=== PATIENT | male | born 1970 | race Caucasian/White ===

== ENCOUNTER 2024-01-23 06:27 | Observation (INO) | payer BC, SELFPAY ==
--- NOTE | ~2024-01-23 | CT_ITS ---
EXAMINATION: CT ABDOMEN AND PELVIS WITH CONTRAST CLINICAL INFORMATION: Left rectal swelling. COMPARISON: 04/16/2017 TECHNIQUE: Multidetector volumetric images were obtained from the superior aspect of the liver through the pubic symphysis following administration 85 mL of Omnipaque 350 intravenous contrast. Sagittal and coronal reformatted images were obtained on the technologist's workstation. Oral contrast: No This CT examination was performed using dose optimization techniques as appropriate, variously including the following: *Automated exposure control *Adjustment of mA and/or kV according to patient size (this includes techniques or standardized protocols for targeted exams where dose is matched to indication/reason for exam; i.e. extremities or head) *Use of iterative reconstruction technique DLP: 627 mGy-cm FINDINGS: LUNG BASES: Small pericardial effusion. Small hiatal hernia. LIVER, GALLBLADDER, AND BILIARY TREE: The liver is enlarged and decreased in attenuation. No focal hepatic lesion or biliary ductal dilatation is present. The gallbladder is unremarkable with no evidence of radiopaque gallstones, gallbladder wall thickening, or obvious pericholecystic inflammatory changes. PANCREAS: Unremarkable. SPLEEN: Unremarkable. ADRENAL GLANDS: Unremarkable. KIDNEYS AND URETERS: The kidneys are normal in size, shape, and attenuation. No hydronephrosis or perinephric stranding. BLADDER: Unremarkable. GASTROINTESTINAL TRACT: No small bowel obstruction. Appendix is within normal limits. ABDOMINAL WALL: No significant hernia is appreciated. LYMPH NODES: No bulky lymphadenopathy. VASCULAR: Normal caliber abdominal aorta. Retroaortic left renal vein. PELVIC VISCERA: Enlarged prostate gland. There is wall thickening of the pubococcygeus muscles there is a linear tract extending from the anus bifurcating into bilateral abscesses measuring 2.0 x 1.4 x 2.0 cm on the right and 3.9 x 3.1 x 4.5 cm on the left. OSSEOUS STRUCTURES: No destructive bone lesions. There is a subcutaneous nodule along the right buttock measuring 1.5 x 1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 MRI pelvis with fistula protocol may be performed for further characterization. Subcutaneous nodule of the right buttock measuring 1.5 x 1.0 x 1.0 cm. Hepatomegaly and hepatic steatosis. Small pericardial effusion.
[2024-01-23 06:38] VITALS: BP 154/96; PULSE 105; RESP 18; TEMP 36.6; O2SAT 96; BMI 28.2
--- NOTE | 2024-01-23 07:09 | ED.GENADULT ---
HPI - General Adult General Chief complaint: General Medical Stated complaint: ?Rectal abscess Time Seen by Provider: 01/23/24 07:08 Source: patient and old records reviewed Mode of arrival: ambulatory Limitations: no limitations History of Present Illness HPI narrative: 53 yo male with no sig PMH states remote hx of perirectal abscess s/p drainage in past by Dr. Aracelis De León. He notes he gets symptoms that often resolve and do not drain. He notes on Saturday he started to have pain in the rectal area on the left side. He notes it has worsened and now he has a hard time sitting. His bowel movements have changed. No fevers, n/v/d. He does not have diabetes. MD complaint: rectal pain Onset (ago): day(s) (3) Location: buttocks Radiation: non-radiation Severity: moderate Quality: aching and constant Pain Consistency: constant Relieving factors: rest Exacerbating factors: movement and other (sitting) Associated symptoms: denies other symptoms Treatments prior to arrival: none Related Data Allergies Allergy/AdvReac Type Severity Reaction Status Date / Time No Known Allergies Allergy Verified 01/23/24 06:38 [No Known Allergies*] Review of Systems Review of Systems: Constitutional : No Fever, No Chills ENT/Mouth : No sore throat, No Rhinorrhea Eyes: No Eye Pain, No Swelling, No Redness Cardiovascular : No Chest Pain, No SOB Respiratory : No Cough, No Sputum Gastrointestinal : No Nausea, No Vomiting, No Diarrhea, No abdominal Pain Genitourinary : No Dysuria, No Hematuria Musculoskeletal : No joint pain, No Myalgias, No Joint Swelling Skin : pos Skin Lesions, positive skin rash Neuro : No Weakness, No Numbness, No Headache Psych : No Anxiety, No Depression All other systems reviewed and are negative [facility] Past Medical History Attestation statement: The following information was validated with the patient. Source: old records reviewed Medical History (Updated 01/23/24 @ 11:08 by Valerie Matias DO) Perirectal abscess Surgical History (Updated 01/23/24 @ 14:06 by Ashly Farr PA-C) History of incision and drainage Social History Social History (Updated 01/23/24 @ 08:08 by Valerie Matias DO) Patient Tobacco Use Status: Never used Tobacco Smoked in Last 30 Days: No Use of substances other than those prescribed or required for medical reasons: No Advance Directives: No Nutrition Risks: No Nutritional Risk Physical Exam ED Vital Signs: Vital Signs - 24 hr 01/23/24 06:38 01/23/24 10:00 Temperature 97.9 F 98.9 F Pulse Rate 105 H 94 Respiratory Rate 18 16 Blood Pressure 154/96 H 111/70 Pulse Oximetry 96 99 Oxygen Delivery Method Room Air Room Air BMI result Body Mass Index 28.2 Appearance: Alert. Oriented X3. No acute distress. Eyes: Pupils equal, round and reactive to light. ENT: Pharynx normal. Neck: Normal inspection. Neck supple. CVS: Normal heart rate and rhythm. Pulses normal. Respiratory: No respiratory distress. Breath sounds normal. Abdomen: Soft and nontender. Rectal: fluctuant area 3+ cm on left perirectal area but his mucosa almost appears like fistulas vs hidradenitis with open areas and pock rubio there is some purulence noted in different area. there is erythema and ttp Skin: Skin warm and dry. Normal skin color. Normal skin turgor. Extremities: No lower extremity edema. No calf ttp Neuro: Oriented X 3. No motor deficit. No sensory deficit. Medications Administered Generic Name Dose Route Start Last Admin Trade Name Freq PRN Reason Stop Dose Admin Lactated Ringer's 1,000 mls @ 100 mls/hr 01/23/24 12:00 01/23/24 12:24 Lr IVCONT 100 mls/hr .Q10H BIGG Administration Discontinued Medications Generic Name Dose Route Start Last Admin Trade Name Freq PRN Reason Stop Dose Admin Sodium Chloride 1,000 mls @ 999 mls/hr 01/23/24 07:30 01/23/24 10:03 Ns IV 01/23/24 08:30 Infused .Q1H1M BIGG Infusion Piperacillin Sod/Tazobactam 50 mls @ 100 mls/hr 01/23/24 07:21 01/23/24 10:03 Sod 3.375 gm/ Sodium Chloride IV 01/23/24 07:50 Infused ONCE ONE Infusion Iohexol 100 ml 01/23/24 09:54 01/23/24 09:55 Iohexol 350 Mg/Ml 100 Ml Infus..Btl IV 01/23/24 09:55 85 ml ONCE ONE Administration Morphine Sulfate 4 mg 01/23/24 07:21 01/23/24 08:41 Morphine Sulfate 4 Mg/Ml Cartridge IVPUSH 01/23/24 07:22 4 mg ONCE ONE Administration Protocol Morphine Sulfate 4 mg 01/23/24 11:47 01/23/24 12:22 Morphine Sulfate 4 Mg/Ml Cartridge IVPUSH 01/23/24 11:48 4 mg ONCE ONE Administration Protocol Ondansetron HCl 4 mg 01/23/24 07:21 01/23/24 08:41 Ondansetron Hcl 4 Mg/2 Ml Vial IVPUSH 01/23/24 07:22 4 mg ONCE ONE Administration Medical Decision Making Medical Decision Making MDM Narrative: 53 yo male with PMH of perirectal abscess s/p drainage by Panitch in the past comes in with rectal pain and findings of abscess but also abnormal appearing mucosa of the rectum with areas of ?hidradenitis appearing vs fistula will obtain basic labs, CT scan to evaluate depth and degree of abscess, IV zosyn, IV morphine for pain. Differential Diagnosis Differential Diagnoses: The differential diagnosis associated with the presentation includes abscess, cellulitis, HS Admission/Observation Consideration of admission/observation: Escalation of care including admission/observation considered admit to surgery Consult Healthcare Provider Management of the patient was discussed with: [employer] (Dr. Nestor armando) Lab Data [facility] Lab Attestation statement: I reviewed the patient's lab results. 01/23/24 07:43 01/23/24 07:43 Labs: Lab Results 01/23/24 Range/Units 07:43 WBC 14.1 H (4.8-10.8) X10*3/uL RBC 4.91 (4.60-5.80) X10*6/uL Hgb 15.3 (14.0-18.0) g/dl Hct 44.5 (42.0-52.0) % MCV 90.6 (80.0-98.0) fL MCH 31.2 (27.0-33.0) pg MCHC 34.4 (31.0-36.0) g/dl RDW 13.6 (11.0-16.0) % Plt Count 227 (160-400) X10*3/uL MPV 9.8 (9.4-12.4) fL Immature Gran % (Auto) 0.6 H (0.0-0.4) % Neut % (Auto) 83.9 H (45-73) % Lymph % (Auto) 7.4 L (20-40) % Finney % (Auto) 7.9 (2-11) % Eos % (Auto) 0.1 (0-4) % Baso % (Auto) 0.1 (0-2) % Lymph # (Auto) 1.0 L (1.2-4.9) X10*3/uL Finney # (Auto) 1.1 (0.1-1.2) X10*3/uL Eos # (Auto) 0.0 (0.0-0.4) X10*3/uL Baso # (Auto) 0.0 (0.0-0.2) X10*3/uL Abs Immat Gran (auto) 0.08 H (0.00-0.03) X10*3/uL Absolute Neuts (auto) 11.8 H (2.0-8.3) x10*3/uL Absolute Nucleated RBC 0.000 (0.0-0.012) X10*3/uL Nucleated RBC % (auto) 0.0 (0.0-0.2) /100WBC Sodium 139 (135-145) mmol/L Potassium 3.9 (3.3-5.1) mmol/L Chloride 103 (96-108) mmol/L Carbon Dioxide 26 (22-29) mmol/L Anion Gap 14 (12-20) BUN 8 L (9-16) mg/dL Creatinine 0.76 (0.5-1.4) mg/dL Estim Creat Clear Calc 135.5 Estimated GFR > 60 Random Glucose 99 (60-115) mg/dL Lactic Acid 1.0 (0.5-2.0) mmol/L Calcium 9.3 (8.4-10.2) mg/dL Magnesium 1.9 (1.6-2.6) mg/dL Total Bilirubin 0.7 (0.0-1.0) mg/dL Direct Bilirubin 0.4 (0.0-0.5) mg/dL AST 20 (5-37) U/L ALT 18 (0-40) U/L Alkaline Phosphatase 58 (39-117) U/L Total Protein 7.4 (6.5-8.0) g/dL Albumin 3.9 (3.5-5.0) g/dL Lipase 25 (8-78) U/L Independent Interpretation I performed an independent interpretation of an: CT Scan (complicated perianal fistula) Radiology Impression Discussion of test interpretation with radiology: I have reviewed the radiologist's reading. Independent Historian Clinical information obtained from an independent historian. History obtained from or confirmed by: Spouse Critical Care Time Critical Care Time Critical Care Time: Yes Total Critical Care Time: 40 Attestation: consult to surgery, IVF, repeat morphine with pain control and improvement I attest to this time spent taking care of the patient Discharge Plan Discharge Clinical Impression: Abscess, perianal Patient Disposition: Admitted As Inpatient
[2024-01-23 07:55] LABS: MANUAL DIFF FLAG NO
[2024-01-23 07:58] LABS: Basophils Percent Auto 0.1 % (0-2); Eosinophils Percent Auto 0.1 % (0-4); Hematocrit 44.5 % (42.0-52.0); Hemoglobin 15.3 g/dl (14.0-18.0); Imm Gran Abs Auto 0.08 X10*3/uL (0.00-0.03); Imm Gran Pct Auto 0.6 % (0.0-0.4); Lymphocytes Percent Auto 7.4 % (20-40); Mean Corpuscular HGB Conc 34.4 g/dl (31.0-36.0); Mean Corpuscular Hemoglobin 31.2 pg (27.0-33.0); Mean Corpuscular Volume 90.6 fL (80.0-98.0); Mean Platelet Volume 9.8 fL (9.4-12.4); Monocytes Absolute Auto 1.1 X10*3/uL (0.1-1.2); Monocytes Percent Auto 7.9 % (2-11); Neutrophils Absolute Auto 11.8 x10*3/uL (2.0-8.3); Neutrophils Percent Auto 83.9 % (45-73); Platelet Count 227 X10*3/uL (160-400); Red Blood Count 4.91 X10*6/uL (4.60-5.80); Red Cell Distribution Width 13.6 % (11.0-16.0); White Blood Count 14.1 X10*3/uL (4.8-10.8)
[2024-01-23 08:15] LABS: Alanine Aminotransferase 18 U/L (0-40); Albumin Level 3.9 g/dL (3.5-5.0); Alkaline Phosphatase 58 U/L (39-117); Anion Gap 14 (12-20); Aspartate Amino Transferase 20 U/L (5-37); Bilirubin Direct 0.4 mg/dL (0.0-0.5); Bilirubin Total 0.7 mg/dL (0.0-1.0); Blood Urea Nitrogen 8 mg/dL (9-16); Calcium 9.3 mg/dL (8.4-10.2); Carbon Dioxide 26 mmol/L (22-29); Chloride 103 mmol/L (96-108); Creatinine Clr Calc Pharmacy 135.5; Estimated Glomerular Filt Rate > 60; Glucose Random 99 mg/dL (60-115); Lipase 25 U/L (8-78); Magnesium 1.9 mg/dL (1.6-2.6); Potassium 3.9 mmol/L (3.3-5.1); Sodium 139 mmol/L (135-145); Total Protein 7.4 g/dL (6.5-8.0)
[2024-01-23] MEDS: 0.9 % Sodium Chloride 1,000 ML 999 ML IV (08:32)
[2024-01-23] MEDS: Morphine Sulfate 4 MG/ML CARTRIDGE IVPUSH ×2 (08:41→12:22)
[2024-01-23] MEDS: Piperacillin Sodium/Tazobactam 3.375 GM in 0.9 % Sodium Chloride 50 ML IV ×3 (08:41→20:58)
[2024-01-23] MEDS: ondansetron HCL 4 MG/2 ML VIAL IVPUSH (08:41)
--- NOTE | 2024-01-23 08:50 | PC.NURSE ---
20G IV INSERTED RAC, FLUIDS STARTED, MEDS GIVEN ORDERED AND DOCUMENTED, PT IN CT AT THIS TIME.
[2024-01-23] MEDS: iohexoL 350 MG/ML 100 ML INFUS..BTL IV (09:55)
[2024-01-23 10:00] VITALS: BP 111/70; PULSE 94; RESP 16; TEMP 37.2; O2SAT 99
[2024-01-23] MEDS: Lactated Ringers 1,000 ML 100 ML IVCONT (12:24)
--- NOTE | 2024-01-23 13:59 | PM.HPGS ---
History of Present Illness History of Present Illness Date of Service: 01/23/24 Chief complaint: ?Rectal abscess Narrative: Isidro Avendano is a 53 year old male who presented to the ED with complaints of perirectal pain, more signficant on the left buttock. He reports this pain began Saturday and it was mild at the time. It progressively worsened throughout the week and this morning he woke up in severe pain. He also reports the area was significantly swollen, prompting him to seek care in ED. He denies drainage from the area, fevers, chills, nausea or vomiting, abdominal pain, diarrhea, constipation, BRBPR. He reports this happened a few times previously, once requiring I&D in 2017. The other times it resolved spontaneously without drainage or antibiotics. Work up in the ED included CBC, BMP, LFTs which was significant for a leukocytosis of 14.1. CT scan abd/pelvis was performed which showed wall thickening of the pubococcygeus muscles with a linear tract extending from the anus bifurcating into bilateral abscesses measuring 2.0 x 1.4 x 2.0 cm on the right and 3.9 x 3.1 x 4.5 cm on the left. Review of Systems Constitutional: Constitutional: Denies chills and Denies fever(s) Cardiovascular: Cardiovascular: Denies chest pain and Denies dyspnea Respiratory: Respiratory: Denies dyspnea Gastrointestinal: Gastrointestinal: Reports as per HPI Genitourinary: Genitourinary: Denies dysuria Integumentary/Breasts: Skin/Breast: Denies rash PMFSH Past Medical History Medical History (Updated 01/23/24 @ 11:08 by Valerie Matias DO) Perirectal abscess Surgical History Surgical History (Updated 01/23/24 @ 14:06 by Ashly Farr PA-C) History of incision and drainage Social History Social History (Updated 01/23/24 @ 08:08 by Valerie Matias DO) Patient Tobacco Use Status: Never used Tobacco Smoked in Last 30 Days: No Use of substances other than those prescribed or required for medical reasons: No Advance Directives: No Nutrition Risks: No Nutritional Risk Meds Allergies Allergy/AdvReac Type Severity Reaction Status Date / Time No Known Allergies Allergy Verified 01/23/24 06:38 [No Known Allergies*] Active Medications: Current Medications Acetaminophen (Acetaminophen 325 Mg Tablet) 650 mg PO Q6H PRN PRN Reason: Pain, Mild (Pain Scale 1-3) Al Hydroxide/Mg Hydroxide (Magnesium Hydrox/Alum Hydrox 30 Ml Oral.Susp) 30 ml PO Q4H PRN PRN Reason: Heartburn/Nausea Docusate Sodium (Docusate Sodium 100 Mg Capsule) 100 mg PO BID [facility] Lactated Ringer's (Lr) 1,000 mls @ 100 mls/hr IVCONT .Q10H [facility] Last Admin: 01/23/24 12:24 Dose: 100 mls/hr Piperacillin Sod/Tazobactam (Sod 3.375 gm/ Sodium Chloride) 50 mls @ 100 mls/hr IV Q6H [facility] Melatonin (Melatonin 3 Mg Tablet) 6 mg PO BEDTIME PRN PRN Reason: Insomnia Morphine Sulfate (Morphine Sulfate 4 Mg/Ml Cartridge) 4 mg IVPUSH Q4H PRN; Protocol PRN Reason: Pain, Severe (Pain Scale 7-10) Ondansetron HCl (Ondansetron Hcl 4 Mg/2 Ml Vial) 4 mg IVPUSH Q8H PRN PRN Reason: Nausea and Vomiting Oxycodone HCl (Oxycodone Hcl Immed Release 5 Mg Tablet) 5 mg PO Q6H PRN PRN Reason: Pain, Moderate(Pain Scale 4-6) Sodium Chloride (0.9 % Sodium Chloride Flush 3 Ml Syringe) 3 ml IVFLUSH QSHIFT [facility] Physical Exam Vital Signs: Vital Signs: Last Vital Signs Temp 98.9 F 01/23/24 10:00 Pulse 94 01/23/24 10:00 Resp 16 01/23/24 10:00 BP 111/70 01/23/24 10:00 Pulse Ox 99 01/23/24 10:00 O2 Del Method Room Air 01/23/24 10:00 BMI result Body Mass Index 28.2 Const: General: comfortable, no acute distress and alert Orientation/consciousness: patient oriented x3 Neck: Neck: No no JVD Resp: Effort & Inspection: normal respiratory effort GI: Other: severe tenderness of left perirectal area, no significant erythema or edema, no palpable fluctuance, no drainage noted Rectal Exam - Male: Yes deferred Skin: General skin exam: no rashes or lesions noted and no jaundice Neuro: General: patient oriented x3 and moves all extremities Results Results Labs: Short CBC 01/23/24 Range/Units 07:43 WBC 14.1 H (4.8-10.8) X10*3/uL Hgb 15.3 (14.0-18.0) g/dl Hct 44.5 (42.0-52.0) % Plt Count 227 (160-400) X10*3/uL BMP 01/23/24 07:43 Sodium 139 Potassium 3.9 Chloride 103 Carbon Dioxide 26 BUN 8 L Creatinine 0.76 Calcium 9.3 Liver Function 01/23/24 Range/Units 07:43 Total Bilirubin 0.7 (0.0-1.0) mg/dL Direct Bilirubin 0.4 (0.0-0.5) mg/dL AST 20 (5-37) U/L ALT 18 (0-40) U/L Alkaline Phosphatase 58 (39-117) U/L Albumin 3.9 (3.5-5.0) g/dL Abdomen CT scan report/results: report reviewed and image reviewed Assessment and Plan (1) Abscess, perianal: Status: Acute Plan 53 old year old male who presented with 4 day history of left perirectal pain and swelling with CT scan demonstrating a possible horseshoe perirectal abscess, L>R, possible fistula. He is extremely tender to palpation and exam is difficult. Will plan for EUA, I&D of perirectal abscess tomorrow under anesthesia. Patient will be admitted to the surgical service for further treatment and started on IV zosyn. Patient comfortable with plan. Quality Stroke Does the patient have a stroke diagnosis?: No VTE Prior VTE?: No VTE Risk Level:: Surgical - low VTE Device Contraindication: N/A - Device Ordered VTE Drug Contraindication: N/A - Med Ordered Procedures Date of Service Date of Service: 01/23/24
--- NOTE | 2024-01-23 15:39 | PHA.MEDREC ---
Pharmacy Consult ? Medication Reconciliation Pharmacy has completed the medication reconciliation. Patient confirms that his ONLY home medication is a Albuterol inhaler that he hasn't used in a week.
[2024-01-23 18:06] VITALS: BP 134/77; PULSE 113; RESP 14; O2SAT 93
[2024-01-23 20:01] VITALS: BP 132/78; PULSE 110; RESP 20; TEMP 38.8; O2SAT 94
[2024-01-23] MEDS: Acetaminophen 325 MG TABLET 650 MG PO (20:19)
[2024-01-23] MEDS: Docusate Sodium 100 MG CAPSULE PO (21:00)
[2024-01-23 22:03] VITALS: BP 118/66; PULSE 99; RESP 14; TEMP 36.9; O2SAT 93
[2024-01-24] VITALS (8 sets, daily range): BP systolic 110–152; BP diastolic 62–88; PULSE 99–105; RESP 14–18; TEMP 36.1–38.2; O2SAT 94–99
--- NOTE | 2024-01-24 06:33 | PC.NURSE ---
verbal report given to LETY Mclaughlin in OR; due to issues w/ admission orders that have already been well known to supervisor audit clerks and charge this RN unable to pull Zosyn from the pyxis. surgeon Dr Blankenship is aware as well.
--- NOTE | 2024-01-24 06:41 | PC.NURSE ---
pt to short stay surgery; picked up by the OR team. LR disconnected at this time.
[2024-01-24] MEDS: Piperacillin Sodium/Tazobactam 3.375 GM in 0.9 % Sodium Chloride 50 ML IV (06:55)
--- NOTE | 2024-01-24 07:09 | PC.NURSE ---
IV documented by author was inserted in ER. Patent. Intact.
--- NOTE | 2024-01-24 07:15 | P.CONAN_ITS ---
[facility] Active Problems Active Problems: All Active Problems (Updated 01/23/24 @ 11:08 by Valerie Matias DO) Abscess, perianal (Acute) benign lumbar mass Aortic aneurysm TOBACCO abuse ETOH abuse daily marijuana Past Medical History Medical History ETOH abuse Perirectal abscess Surgical History Surgical History Hx of colonoscopy History of incision and drainage History of Problems with Anesthesia: No Social History Social History Patient Tobacco Use Status: Current everyday Tobacco user Tobacco use type: Cigarette Meds Allergies Allergy/AdvReac Type Severity Reaction Status Date / Time No Known Allergies Allergy Verified 01/23/24 06:38 [No Known Allergies*] Active Medications: Current Medications Acetaminophen (Acetaminophen 325 Mg Tablet) 650 mg PO Q6H PRN PRN Reason: Pain, Mild (Pain Scale 1-3) Last Admin: 01/23/24 20:19 Dose: 650 mg Al Hydroxide/Mg Hydroxide (Magnesium Hydrox/Alum Hydrox 30 Ml Oral.Susp) 30 ml PO Q4H PRN PRN Reason: Heartburn/Nausea Docusate Sodium (Docusate Sodium 100 Mg Capsule) 100 mg PO BID [facility] Last Admin: 01/23/24 21:00 Dose: 100 mg Lactated Ringer's (Lr) 1,000 mls @ 100 mls/hr IVCONT .Q10H [facility] Last Admin: 01/24/24 04:10 Dose: Not Given Piperacillin Sod/Tazobactam (Sod 3.375 gm/ Sodium Chloride) 50 mls @ 100 mls/hr IV Q6H [facility] Last Admin: 01/24/24 06:55 Dose: 100 mls/hr Ibuprofen (Ibuprofen 600 Mg Tablet) 600 mg PO RQ8H PRN PRN Reason: Fever Melatonin (Melatonin 3 Mg Tablet) 6 mg PO BEDTIME PRN PRN Reason: Insomnia Morphine Sulfate (Morphine Sulfate 4 Mg/Ml Cartridge) 4 mg IVPUSH Q4H PRN; Protocol PRN Reason: Pain, Severe (Pain Scale 7-10) Ondansetron HCl (Ondansetron Hcl 4 Mg/2 Ml Vial) 4 mg IVPUSH Q8H PRN PRN Reason: Nausea and Vomiting Oxycodone HCl (Oxycodone Hcl Immed Release 5 Mg Tablet) 5 mg PO Q6H PRN PRN Reason: Pain, Moderate(Pain Scale 4-6) Sodium Chloride (0.9 % Sodium Chloride Flush 3 Ml Syringe) 3 ml IVFLUSH QSHIFT [facility]G Last Admin: 01/24/24 04:11 Dose: Not Given Home Medications Medication Instructions Recorded Confirmed Last Taken Type albuterol sulfate 90 mcg/actuation 2 puff inhalation Q4H PRN wheezing 01/23/24 01/23/24 01/16/24 History aerosol inhaler Exam Height,Weight and Vital Signs: Height 6 ft Weight 94.3 kg Last Vital Signs Temp 100.8 F H 01/24/24 07:10 Pulse 105 H 01/24/24 07:10 Resp 18 01/24/24 07:10 BP 128/88 01/24/24 07:10 Pulse Ox 96 01/24/24 07:10 O2 Del Method Room Air 01/24/24 07:10 Pertinent Lab Results Pertinent Lab Results: Laboratory Tests 01/23/24 07:43 WBC 14.1 H RBC 4.91 Hgb 15.3 Hct 44.5 MCV 90.6 MCH 31.2 MCHC 34.4 RDW 13.6 Plt Count 227 MPV 9.8 Immature Gran % (Auto) 0.6 H Neut % (Auto) 83.9 H Lymph % (Auto) 7.4 L Kinney % (Auto) 7.9 Eos % (Auto) 0.1 Baso % (Auto) 0.1 Lymph # (Auto) 1.0 L Kinney # (Auto) 1.1 Eos # (Auto) 0.0 Baso # (Auto) 0.0 Abs Immat Gran (auto) 0.08 H Absolute Neuts (auto) 11.8 H Absolute Nucleated RBC 0.000 Nucleated RBC % (auto) 0.0 Sodium 139 Potassium 3.9 Chloride 103 Carbon Dioxide 26 Anion Gap 14 BUN 8 L Creatinine 0.76 Estim Creat Clear Calc 135.5 Estimated GFR > 60 Random Glucose 99 Lactic Acid 1.0 Calcium 9.3 Magnesium 1.9 Total Bilirubin 0.7 Direct Bilirubin 0.4 AST 20 ALT 18 Alkaline Phosphatase 58 Total Protein 7.4 Albumin 3.9 Lipase 25 Airway Mallampati Class: III TM Dist: >3cm Neck ROM: Full Denture: Upper Loose/Missing/Broken Teeth: Yes, Upper and Lower Heart: RRR Lungs: CTA Assessment and Plan Assessment Anesthesia Assessment: Anesthesia Plan Discussed and Chart Reviewed Final Anesthetic Review History of Problems with Anesthesia: No NPO: Yes ASA Class: III Final Preanesthetic Review: Meds/Allgs Chart Reviewed, Consent Obtained/Reviewed and Anes Risks/Benef Reviewed Patient Risk: Intermediate Procedure Risk: Low Anesthetic Plan Anesthetic Plan: MAC: Disposition: Standard PACU
--- NOTE | 2024-01-24 07:24 | PC.NURSE ---
anti aware of patient etoh and marijuana use as documented on preop record.
--- NOTE | 2024-01-24 09:21 | W.MHC.F2F ---
Service Date Service Date: 01/24/24 Encounter Date of encounter: 01/24/24 Reasons for Services Signs and symptoms assessed: pain, vitals, s/p I&D of perirectal abscesses Reason for custodial: wound care and postoperative assessment and/or care Homebound: Leaving the home is medically contraindicated at this time without the asist of a device and/or another person due th the listed conditions above and below. Reason homebound: unable to drive Homebound supporting statement: Mr. Avendano is s/p incision and drainage of bilateral perirectal abscesses. He will need VNA for every other day dressing changes. Certification: Based on the above findings, I certify that this patient is confined to the home and needs intermittent custodial care, physical therapy and/or speech therapy, or continues to need occupational therapy. The patient is under my care, and I have initiated the establishment of the plan of care. The patient will be followed by a physician who will periodically review the plan of care. Time Spent With Patient Time: Total time managing care of this patient today ____ minutes.
--- NOTE | 2024-01-24 09:29 | MHC.CM.ED ---
Addendum entered by Halima Gonzales 01/24/24 12:49: Dressing orders per Ashly SO: packing with saline soaked kerlix roll to abscess cavities (right and left side) followed by fluffs abd dressing and tape, and then mesh underwear. To be changed every other day. This info was sent to [facility]. Original Note: Received notification from Jessenia DAVIDSON from PACU that patient had surgery, will be d/c'd today and needs VNA for fci dressing changes every other day. [facility] is able to accomodate. Continue to monitor for d/c needs.
--- NOTE | 2024-01-24 09:38 | W.PM.OPN ---
Operative Note Operative Note Date of Service: 01/24/24 Narrative: Preoperative diagnosis: [] Bilateral complex perirectal abscesses Postop diagnosis: [] The same Procedure; incision and drainage of bilateral perirectal abscesses complex. Surgeon; [employer] Teacher: [] Chika Type of Anesthesia: [] General Indication for surgery: [] Cultures obtained of bilateral complex perirectal abscesses. 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 Anorectal area was prepped and draped in usual sterile fashion. Patient had significant cicatrization and scarring from multiple prior bouts of anorectal abscesses. Left and right anorectal abscesses were identified using a finder needle,, a longitudinal incision was made over each s, and multi loculated abscess cavities were drained with both clamped and digital dissection to break up loculations.. Cultures obtained. Each wound was irrigated, secured hemostasis, and packed with moistened Kerlix packing followed by 4x4s and ABD dressings. Each wound was infiltrated 0.5% Marcaine at completion. Sponge, needle, and instrument counts reported correct. Patient tolerated the procedure well and emerged from anesthesia stable condition. EBL minimal
--- NOTE | 2024-01-24 10:53 | PC.NURSE ---
Pt discharged home but unable to enter dc time d/t patient's initial Admit to Observation status. Registration currently working on issue. Pt waited in discharge area for approximately 1 hour waiting for the issue to be resolved before going home. This RN was able to print discharge signature page which contained instructions and prescription information. Pt states okay to call at home if additional instructions are added. VNA has been set up for the patient and he states that he has undergone this procedure before. Work note provided for Saturday and pt states will contact Dr Baez's office to see if he is able to return to work on Saturday as this was not addressed in the discharge instructions. Pt time of departure was 1047.
--- NOTE | 2024-01-28 12:55 | PM.DS ---
DS: Providers Provider Date of Service: 01/24/24 Date of admission: 01/23/24 12:17 Primary care physician: SARAY Stapleton Attending physician on admission: Jack Baez Attending physician on discharge: Jack Baez DS: Diagnosis Discharge Diagnosis (1) Abscess, perianal: Status: Acute DS: Summary Hospital Course Hospital Course: HPI AT ADMISSION: Isidro Avendano is a 53 year old male who presented to the ED with complaints of perirectal pain, more signficant on the left buttock. He reports this pain began Saturday and it was mild at the time. It progressively worsened throughout the week and this morning he woke up in severe pain. He also reports the area was significantly swollen, prompting him to seek care in ED. He denies drainage from the area, fevers, chills, nausea or vomiting, abdominal pain, diarrhea, constipation, BRBPR. He reports this happened a few times previously, once requiring I&D in 2017. The other times it resolved spontaneously without drainage or antibiotics. Work up in the ED included CBC, BMP, LFTs which was significant for a leukocytosis of 14.1. CT scan abd/pelvis was performed which showed wall thickening of the pubococcygeus muscles with a linear tract extending from the anus bifurcating into bilateral abscesses measuring 2.0 x 1.4 x 2.0 cm on the right and 3.9 x 3.1 x 4.5 cm on the left. HOSPITAL COURSE: Patient was admitted to the surgical service for further treatment and started on IV zosyn. with plan for EUA, I&D of perirectal abscess the following morning under anesthesia. Patient comfortable with plan. On 01/24/24, incision and drainage of bilateral complex perirectal abscesses was performed by Dr. Baez without complication. Culture was obtained of bilateral complex perirectal abscesses. 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 The patient tolerated the procedure well. He felt improved and wanted to go home following the procedure. VNA was therefore arranged for dressing changes every other day with saline soaked kerlix roll packing to abscess cavities followed by fluffs and abdominal dressing. He was discharged to home on 01/24/24 with VNA services on a 7 day course of Augmentin 875mg PO BID. He is to follow up in the office in 1 week. Status at Discharge Functional status at discharge: independent ambulation Overall status at discharge: patient is progressing back to baseline Time Attestation Discharge Coordination Time: discharge time of ____ minutes Quality: Safe Use of Opioids Does Pt have an Active Cancer Diagnosis on the Problem List?: No Quality: Stroke Does the patient have a stroke diagnosis?: No Physical Exam Vital Signs: Vital Signs: Last Vital Signs Temp 97 F 01/24/24 08:48 Pulse 100 01/24/24 09:18 Resp 16 01/24/24 09:18 BP 128/87 01/24/24 09:18 Pulse Ox 94 01/24/24 09:18 O2 Del Method Room Air 01/24/24 09:18 O2 Flow Rate 8 01/24/24 08:53 BMI result Body Mass Index 28.2 Const: General: comfortable, no acute distress and alert Resp: Effort & Inspection: normal respiratory effort GI: Other: perirectal dressing dry and intact Skin: General skin exam: no rashes or lesions noted DS: Data Data Completed and Pending Labs on day of discharge: Preliminary micro results at discharge 01/24/24 08:11 Routine Culture - Preliminary Lola-rectal abscess Gram positive leia Anaerobic Culture - Preliminary Culture in progress. Discharge Plan Discharge Patient Disposition: Home Health Service Referrals: Maria BABCOCKA [Outside] - 1 Week (Agency will see you on Saturday to change your dressings. ) Jack Baez MD [Physician] - 1 Week Physician,Unknown J [Physician] - 1 Week Discharge Medications: New amoxicillin-pot clavulanate 875-125 mg tablet 1 tab PO BID Qty: 14 0RF oxycodone 5 mg tablet 5 mg PO Q4H PRN (Reason: pain (scale score 7-10)) Qty: 30 0RF Rx Instructions: Partial Fill upon patient request. Continued albuterol sulfate 90 mcg/actuation HFA aerosol inhaler 2 puff inhalation Q4H PRN (Reason: wheezing) Discharge Orders: Discharge Order (Routine); Ordered 01/24/24 Ordered By: Ashly Farr Diet: Advance to usual diet Activity on Discharge: As tolerated Activity Restrictions/Additional Instructions: Hot sitz bath or shower prior to VNA visit and dressing change. Dressing change with kerlix wrap saline soaked packing into abscess cavities (right and left) followed by fluffs, abd dressing and tape/mesh underwear. To be changed every other day. Follow up in office in a week. ([phone]) Call Your Doctor Or Return to ED If: ? ? -Your temperature exceeds 101.5? F? ? ? -You experience excessive pain or swelling ? ? -You have an unexpected reaction to medication ? ? -You experience continued vomiting/nausea Care Plan Goals: Return to baseline health and resume normal activities following recovery period. Closure of b/l wounds. Health Concerns: bilateral perirectal abscesses Plan of Treatment: s/p incision and drainage VNA for wound care F/u in office in 1 week PO augmentin Assessment: Doing well post op. Discharge Date/Time: 01/24/24 09:18
== END 2024-01-24 09:18 | disposition home health service (06) ==
LOC: HO.ED 01-24 09:16 → HO.SSSA 01-24 09:18
PROVIDERS: Admitting Provider Surgery; Emergency Provider Emergency Medicine; PCP Physician Assistant; Visit Provider Surgery
PROC: (CPT 46040; principal; 2024-01-24 07:30)
DX: K61.0 Anal abscess (principal); B96.6 Bacteroides fragilis [B. fragilis] as the cause of diseases classified elsewhere; K62.89 Other specified diseases of anus and rectum
CPT/HCPCS: 46040; 36415; 74177; 80048; 80076; 83605; 83690; 83735; 85025; 87040; 87070; 87073; 87076; 87205; 96365; 96366; 96375; 99221; 99285; J1100; J2250; J2270; J2405; J2543; J2704; J2795; J3010; J7120; Q9967

== ENCOUNTER → 2024-01-23 12:24 | Outpatient (BNV) | payer BC, SELFPAY | PROVIDERS: Emergency Provider Emergency Medicine; Visit Provider Physician Assistant Surgical | DX: K61.0 Anal abscess (principal) | CPT/HCPCS: 46040; 99024; 99222; G0180 ==

== ENCOUNTER 2024-02-03 09:52 | Outpatient (AMB) | payer BC, SELFPAY ==
[2024-02-03 09:57] VITALS: BP 157/92; PULSE 104
--- NOTE | 2024-02-03 09:57 | A.OFFVIS_ITS ---
Intake Vital Signs 02/03/24 09:57 Weight 201 lb BP 157/92 H Blood Pressure Location Lt brachial Position Sitting Pulse 104 H Intake Visit Reasons: S/p I&D rectal abscess Intake Note: Patient here s/o I&D rectal abscess on 01-24-24. Patient finished amoxicillin course. Patient c/o: pain, discomfort when sitting. Tinner Automatic Required: No Accompanied by: Self / Same As Patient Allergies No Known Allergies [No Known Allergies*] Allergy (Verified 02/03/24 09:58) HPI HPI Comments History of Present Illness Details Status post I&D perirectal abscess x2. Patient doing quite well. His was instructed on local wound care by VNA services. He is otherwise tole rating a diet, having regular bowel habits. Increasing his activity level. [facility] Medical History ETOH abuse Perirectal abscess Surgical History Hx of colonoscopy History of incision and drainage Social History Comment: counts correct Patient Tobacco Use Status: Current everyday Tobacco user Tobacco use type: Cigarette Physical Exam Vital Signs: Last Vital Signs Pulse 104 H 02/03/24 09:57 BP 157/92 H 02/03/24 09:57 GI Other: Bilateral buttock wounds are healing very well. Granulating tissue. No evidence of any infective process. Assessment & Plan Assessment & Plan (1) Status post incision and drainage: Code(s): Z98.890 - Other specified postprocedural states Plan Patient is continue local wound care. When his can no longer packed wounds they will only require dressings until they do not drain anymore. All questions answered. Patient will follow-up p.r.n.. Coding Level of Care Code Global (66950) Diagnoses Status post incision and drainage Z98.890
== END 2024-02-03 10:06 | disposition home or self-care (01) ==
PROVIDERS: PCP Physician Assistant; Visit Provider Surgery
DX: Z98.890 Other specified postprocedural states (principal)
CPT/HCPCS: 99024

== ENCOUNTER → 2024-02-03 09:52 | Outpatient (BNVA) | payer BC, SELFPAY | PROVIDERS: PCP Physician Assistant; Visit Provider Surgery ==

== ENCOUNTER 2025-08-16 08:59 | Observation (INO) | payer BC, SELFPAY ==
--- NOTE | ~2025-08-16 | XR_ITS ---
EXAMINATION: XR ABDOMEN 1 VIEW (KUB) HISTORY: constipation COMPARISON: There are no prior studies available for comparison. FINDINGS: Three supine views of the abdomen are submitted. The bowel gas pattern is unremarkable, without evidence of mechanical obstruction. There is a large amount of stool throughout the colon. No abnormal calcifications are identified. There are no abnormal soft tissue masses. The bones are intact. XR/XR KUB IMPRESSION: Large amount of stool throughout the colon. Electronically signed by: Blake Liang MD 08/16/2025 09:28 AM EDT
--- NOTE | ~2025-08-16 | CT_ITS ---
EXAMINATION: CT ABDOMEN PELVIS WITH IV CONTRAST HISTORY: Small Bowel obstruction? Perirectal abscess? COMPARISON: Comparison is made with the prior examination dated 01/23/2024. TECHNIQUE: CT scan of the abdomen and pelvis was performed following administration of 85 mL Omnipaque 350 using standard departmental protocol. Coronal and sagittal reformatted images were generated and reviewed. Oral contrast material was not administered at the request of the referring physician. This CT exam was performed with one or more of the following dose reduction techniques: automated exposure control, adjustment of the mA and/or kV according to patient size, use of iterative reconstruction technique. DLP: 500 mGy-cm FINDINGS: LOWER CHEST: The visualized lung bases are clear. There is no pleural effusion. CARDIOVASCULATURE: The heart is normal in size. There is no pericardial effusion. LIVER: The liver is normal in size and contour, but demonstrates mildly decreased attenuation, compatible with steatosis. No liver mass is identified. The hepatic and portal veins are patent. GALLBLADDER / BILE DUCTS: The gallbladder is unremarkable. There is no intra or extrahepatic biliary ductal dilatation. SPLEEN: The spleen is normal in size. No focal splenic lesion is identified. PANCREAS: The pancreas is unremarkable in appearance. ADRENAL GLANDS: Within normal limits. KIDNEYS/RETROPERITONEUM: No renal calculi are identified. There is no hydronephrosis. No renal masses are identified. LYMPH NODES: No abdominal or pelvic lymphadenopathy. VASCULATURE: The abdominal aorta is normal in caliber. MESENTERY/PERITONEUM: No free fluid. No masses. There is no free intraperitoneal gas. STOMACH: The stomach is collapsed, limiting evaluation. SMALL BOWEL: The small bowel is normal in caliber. There is no evidence of small bowel obstruction. COLON: There is a moderate amount of stool throughout the colon. There is a rim-enhancing fluid collection in the right perianal region measuring approximately 5.5 x 2.8 x 2.6 cm, compatible with an abscess. There is fullness in the left perianal region without a well-defined fluid collection. APPENDIX: Normal. URINARY BLADDER/PELVIC ORGANS: The urinary bladder is unremarkable. There are calcifications of the prostate. BONES / SOFT TISSUES: No suspicious bony or soft tissue abnormalities. CT/CT abdomen pelvis w IV con IMPRESSION: Findings consistent with a right perianal abscess measuring approximately 5.2 x 2.8 x 2.6 cm. Electronically signed by: Blake Liang MD 08/16/2025 11:12 AM EDT
[2025-08-16 09:03] VITALS: BP 143/99; PULSE 110; RESP 16; TEMP 36.6; O2SAT 95; BMI 27.1
--- NOTE | 2025-08-16 09:23 | ED.GENADULT ---
HPI - General Adult General Chief complaint: General Medical Stated complaint: pararectal absess? pain since saturday Time Seen by Provider: 08/16/25 09:21 Source: patient Mode of arrival: ambulatory Limitations: no limitations History of Present Illness ED Provider: Elvis Mayorga HPI narrative: 54 yold male with pmh of perianal abscess presents to the ED for rectal pain, no bowel movement since saturday, unable to urinating since this . patient states he last urinating this morning, but since than has not able to urinate due to rectal pain. Patient denies any nausea vomiting fever or chills Related Data Home Medications ?Medication ?Instructions ?Recorded ?Confirmed albuterol sulfate 90 mcg/actuation 2 puff inhalation Q4-6H PRN 08/16/25 08/16/25 aerosol inhaler Shortness Of Breath Or Wheezing Allergies Allergy/AdvReac Type Severity Reaction Status Date / Time No Known Allergies (No Known Allergy Verified 08/16/25 09:08 Allergies*) Review of Systems Review of Systems: Rectal pain slight lower abdominal discomfort, last pass urine this morning Yes all other systems are reviewed and are negative PMFSH Past Medical History Medical History ETOH abuse Perirectal abscess Surgical History Hx of colonoscopy History of incision and drainage Social History Social History Comment: counts correct Patient Tobacco Use Status: Current everyday Tobacco user Tobacco use type: Cigarette Advance Directives: Yes Advance Directives Information Provided: No Advance Directives on File: No Physical Exam ED Vital Signs: Vital Signs - 24 hr 08/16/25 09:03 08/16/25 12:29 Temperature 97.8 F Pulse Rate 110 H 89 Respiratory Rate 16 20 Blood Pressure 143/99 H 135/88 Pulse Oximetry 95 99 Oxygen Delivery Method Room Air Room Air BMI result Body Mass Index 27.1 Const General: cooperative, healthy appearing, comfortable, no acute distress, well developed, alert, awake and Physically active Orientation/consciousness: patient oriented x3 HENMT Head: Yes normal to inspection, Yes No palpable skull fracture present, Yes normocephalic and Yes atraumatic Eyes General: appearance normal, both eyes and all related structures Neck Neck: Yes normal visual inspection, Yes full ROM, Yes no lymphadenopathy, Yes no meningeal signs, Yes trachea midline, Yes supple, No anterior neck swelling and No tender Chest Chest palpation & inspection: normal inspection of the chest and normal palpation of entire chest wall Resp Effort & Inspection: normal respiratory effort and able to speak in complete sentences Cardio Jugular venous distension: no JVD Heart sounds: S1 normal heart sound present and S2 normal heart sound present GI Other: Rectal exam: Positive for scarring around rectal area due to history of perianal abscess but no active drainage or palpable mass on anal exam. Negative for any blood. Inspection: Yes normal to inspection Palpation (GI): Soft to palpation, not firm, Tenderness to palpation present (GI) in the LLQ and no guarding General: Yes no CVA tenderness Back/Spine/Pelvis Back: no CVA tenderness and No back tenderness Skin General skin exam: no rashes or lesions noted, elasticity normal and turgor normal Neuro General: patient oriented x3, gait normal, tone normal, moves all extremities, Normal light touch and pain sensation, no meningeal signs, no focal motor deficits, CN's II-XI intact bilaterally and normal sensation to monofilament Extrem General: Yes normal to inspection, Yes full ROM and Yes capillary refill normal Psych Appearance: grossly normal, well kempt and not disheveled Medications Administered Generic Name Dose Route Start Last Admin Trade Name Freq PRN Reason Stop Dose Admin Lactated Ringer's 1,000 mls @ 80 mls/hr 08/16/25 14:00 08/16/25 14:17 Lr IVCONT 80 mls/hr .[id number] BIGG Administration Piperacillin Sod/Tazobactam 50 mls @ 100 mls/hr 08/16/25 14:00 08/16/25 14:59 Sod 3.375 gm/ Sodium Chloride IV Not Given Q6H BIGG Oxycodone HCl 5 mg 08/16/25 13:51 08/16/25 14:14 Oxycodone Hcl Immed Release 5 Mg Tablet PO 5 mg Q4H PRN Administration Pain, Moderate(Pain Scale 4-6) Sodium Chloride 3 ml 08/16/25 16:00 08/16/25 14:17 0.9 % Sodium Chloride Flush 3 Ml Syringe IVFLUSH 3 ml QSHIFT BIGG Administration Discontinued Medications Generic Name Dose Route Start Last Admin Trade Name Freq PRN Reason Stop Dose Admin Piperacillin Sod/Tazobactam 50 mls @ 100 mls/hr 08/16/25 13:23 08/16/25 15:43 Sod 3.375 gm/ Sodium Chloride IV 08/16/25 13:52 Infused ONCE ONE Infusion Iohexol 100 ml 08/16/25 10:38 08/16/25 10:38 Iohexol 350 Mg/Ml 100 Ml Infus..Btl IV 08/16/25 10:39 85 ml ONCE ONE Administration Lidocaine HCl 5 ml 08/16/25 13:23 08/16/25 14:14 Lidocaine Hcl 2 % Mpf 5 Ml Vial INFILTRATI 08/16/25 13:24 5 ml ONCE ONE Administration Lidocaine HCl 5 ml 08/16/25 13:23 08/16/25 14:15 Lidocaine Hcl 2 % Mpf 5 Ml Vial INFILTRATI 08/16/25 13:24 5 ml ONCE ONE Administration Morphine Sulfate 4 mg 08/16/25 09:34 08/16/25 09:47 Morphine Sulfate 4 Mg/Ml Cartridge IVPUSH 08/16/25 09:35 4 mg ONCE ONE Administration Protocol Morphine Sulfate 4 mg 08/16/25 12:20 08/16/25 12:28 Morphine Sulfate 4 Mg/Ml Cartridge IVPUSH 08/16/25 12:21 4 mg ONCE ONE Administration Protocol Medical Decision Making Medical Decision Making [facility] Narrative: [age] year male presents to ED for no bowel movement since Saturday, rectal pain, and last urine stream was this morning. Patient feels constipated. Labs ordered. X-ray shows large amount of stool without signs of small-bowel obstruction. Due to history of rectal perianal abscess was sent for abdominal CT scan to rule out small abscess. Bladder scan ordered and only 101 1:28pm: Patient is positive for perianal abscess as per CT scan. Case discussed with Dr. Mccormack who sent his physician computer assistant Polo. Polo will do bedside incision and drainage and patient should be admitted for IV antibiotics. Zosyn ordered. Differential Diagnosis Differential Diagnoses: The differential diagnosis associated with the presentation includes ( abscess, small-bowel obstruction, colitis, UTI, urinary retention) Admission/Observation Consideration of admission/observation: Escalation of care including admission/observation considered Consult Healthcare Provider Management of the patient was discussed with: Warehouse Unloader (Dr. Todd) Lab Data MDM Lab Attestation statement: I reviewed the patient's lab results. 08/16/25 09:46 08/16/25 09:46 Labs: Lab Results 08/16/25 08/16/25 Range/Units 09:40 09:46 WBC 15.8 H (4.8-10.8) X10*3/uL RBC 4.89 (4.60-5.80) X10*6/uL Hgb 15.7 (14.0-18.0) g/dl Hct 44.2 (42.0-52.0) % MCV 90.4 (80.0-98.0) fL MCH 32.1 (27.0-33.0) pg MCHC 35.5 (31.0-36.0) g/dl RDW 13.5 (11.0-16.0) % Plt Count 268 (160-400) X10*3/uL MPV 9.5 (9.4-12.4) fL Immature Gran % (Auto) 0.4 (0.0-0.4) % Neut % (Auto) 82.4 H (45-73) % Lymph % (Auto) 8.3 L (20-40) % [place] % (Auto) 8.7 (2-11) % Eos % (Auto) 0.1 (0-4) % Baso % (Auto) 0.1 (0-2) % Lymph # (Auto) 1.3 (1.2-4.9) X10*3/uL [place] # (Auto) 1.4 H (0.1-1.2) X10*3/uL Eos # (Auto) 0.0 (0.0-0.4) X10*3/uL Baso # (Auto) 0.0 (0.0-0.2) X10*3/uL Abs Immat Gran (auto) 0.07 H (0.00-0.03) X10*3/uL Absolute Neuts (auto) 13.0 H (2.0-8.3) x10*3/uL Absolute Nucleated RBC 0.000 (0.0-0.012) X10*3/uL Nucleated RBC % (auto) 0.0 (0.0-0.2) /100WBC Sodium 135 (135-145) mmol/L Potassium 4.0 (3.3-5.1) mmol/L Chloride 104 (96-108) mmol/L Carbon Dioxide 25 (22-29) mmol/L Anion Gap 10 L (12-20) BUN 8 L (9-16) mg/dL Creatinine 0.63 (0.5-1.4) mg/dL Estim Creat Clear Calc 148.8 Estimated GFR > 60 Random Glucose 113 (60-115) mg/dL Calcium 9.5 (8.4-10.2) mg/dL Total Bilirubin 0.7 (0.0-1.0) mg/dL AST 23 (5-37) U/L ALT 15 (0-40) U/L Alkaline Phosphatase 75 (39-117) U/L Total Protein 7.6 (6.5-8.0) g/dL Albumin 4.2 (3.5-5.0) g/dL Stool Occult Blood NEGATIVE (NEGATIVE) Independent Interpretation I performed an independent interpretation of an: CT Scan Radiology Impression Discussion of test interpretation with radiology: I have reviewed the radiologist's reading. Prescription Management I considered prescription management with: Antibiotic Critical Care Time Critical Care Time Critical Care Time: Yes Total Critical Care Time: 60 Attestation: Patient found to have perianal abscess white blood cell count [id number]. Morphine given for pain. Antibiotics ordered. General surgery consulted admitted Discharge Plan Discharge Clinical Impression: Abscess, perianal Patient Disposition: Admitted As Inpatient
[2025-08-16 09:52] LABS: MANUAL DIFF FLAG NO
[2025-08-16 09:53] LABS: Hematocrit 44.2 % (42.0-52.0); Hemoglobin 15.7 g/dl (14.0-18.0); Imm Gran Abs Auto 0.07 X10*3/uL (0.00-0.03); Imm Gran Pct Auto 0.4 % (0.0-0.4); Lymphocytes Absolute Auto 1.3 X10*3/uL (1.2-4.9); Mean Corpuscular HGB Conc 35.5 g/dl (31.0-36.0); Mean Corpuscular Hemoglobin 32.1 pg (27.0-33.0); Mean Corpuscular Volume 90.4 fL (80.0-98.0); NRBC Abs Auto 0.000 X10*3/uL (0.0-0.012); NRBC Pct Auto 0.0 /100WBC (0.0-0.2); Platelet Count 268 X10*3/uL (160-400); Red Blood Count 4.89 X10*6/uL (4.60-5.80); White Blood Count 15.8 X10*3/uL (4.8-10.8)
[2025-08-16 10:04] LABS: OBS Int Ctl Valid YES; OBS1 NEGATIVE (NEGATIVE)
[2025-08-16 10:11] LABS: Alanine Aminotransferase 15 U/L (0-40); Albumin Level 4.2 g/dL (3.5-5.0); Alkaline Phosphatase 75 U/L (39-117); Anion Gap 10 (12-20); Aspartate Amino Transferase 23 U/L (5-37); Blood Urea Nitrogen 8 mg/dL (9-16); Calcium 9.5 mg/dL (8.4-10.2); Carbon Dioxide 25 mmol/L (22-29); Chloride 104 mmol/L (96-108); Creatinine Clr Calc Pharmacy 148.8; Estimated Glomerular Filt Rate > 60; Potassium 4.0 mmol/L (3.3-5.1); Sodium 135 mmol/L (135-145); Total Protein 7.6 g/dL (6.5-8.0)
[2025-08-16] MEDS: iohexoL 350 MG/ML 100 ML INFUS..BTL IV (10:38)
--- OUTSIDE RECORDS SUMMARY | 2025-08-16 11:05 | XMS_ITS | Clinical Summary ---
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 Active Encounters Date Type Department Care Team Description 08/09/2025 11:15 AM EDT Consult General Surgery - [place] [address] [facility] [address] [place] [address] Blaise Ibarra MD Dysplastic nevus from Last 3 Months Social History Tobacco Use Types Packs/Day Years Used Date Smoking Tobacco: Every Day Cigarettes Tobacco Cessation:Ready to Q uit: Not Asked; Counseling Given: Not Answered Alcohol Use Standard Drinks/Week Comments Yes 0 (1 standard drink = 0.6 oz pur e alcohol) Sex and Gender Information Value Date Recorded Sex Assigned at Not on file Legal Sex Male 1:13 PM EDT Gender Identity Not on file Sexual Orientation Not on file Obstetrics History Last Filed Vital Signs Vital Sign Reading Time Taken Comments Blood Pressure 142/92 08/09/2025 10:50 AM EDT Pulse 90 08/09/2025 10:50 AM EDT Temperature 36.6 C (97.8 F) 08/09/2025 10:50 AM EDT Respiratory Rate - - Oxygen Saturation - - Inhaled Oxygen Concentration - - Weight 88.7 kg (195 lb 9.6 oz) 08/09/2025 10:50 AM EDT Height 182.9 cm (6') 08/09/2025 10:50 AM EDT Body Mass Index 26.53 08/09/2025 10:50 AM EDT Plan of Treatment Health Maintenance Due Date Last Done Comments Hepatitis A Vaccines (1 of 2 - Risk 2-dose series) 1990 Hepatitis B Vaccines (1 of 3 - 19+ 3-dose series) 1990 DTaP,Tdap,and Td Vaccines (2 - Td or Tdap) 01/11/2016 01/11/2006 Pneumococcal Vaccine: 50+ Years (2 of 2 - PCV) 04/25/2016 04/25/2015 Zoster Vaccines (1 of 2) 2021 Depression Screening 11/25/2024 Cholesterol Screening (Lipid Panel) 06/11/2025 Colorectal Cancer Screening: Colonoscopy 06/11/2025 HIV Screening 06/11/2025 Hepatitis C Screening 06/11/2025 Social Influencers of Health Screening 06/11/2025 COVID-19 Vaccine (3 - 2024-2 6 season) 2025 09/19/2021, 08/22/2021 Influenza Vaccine (#1) 2025 RSV Immunization Adult Patients (1 - 1-dose 75+ series) 2046 HIB Vaccines Aged Out No longer eligi ble based on patient's age to complete this topic HPV Vaccines Aged Out No longer eligi ble based on patient's age to complete this topic IPV Vaccines Aged Out No longer eligi ble based on patient's age to complete this topic MMR Vaccines Aged Out No longer eligi ble based on patient's age to complete this topic Meningococcal ACWY Vaccine Aged Out N o longer eligible based on patient's age to complete this topic Meningococcal B Vaccine Aged Out No l onger eligible based on patient's age to complete this topic RSV Immunization Patients Under 20 months Aged Out No longer eligible b ased on patient's age to complete this topic Varicella Vaccines Aged Out No longer eligible based on patient's age to complete this topic Insurance [facility]
[2025-08-16 12:29] VITALS: BP 135/88; PULSE 89; RESP 20; O2SAT 99
--- NOTE | 2025-08-16 13:00 | PC.NURSE ---
Surgery consulted for perianal abscess. Pt given 2 doses of IV morphine with relief. Unable to give urine sample d/t urinary retention. Pt reports difficulty urinating since this am.
--- NOTE | 2025-08-16 14:00 | PC.NURSE ---
Surgery at bedside for I&D of rt perianal abcess. Bld cxs obtained x2. Pt to received IVabx. Pending admission
[2025-08-16] MEDS: Lidocaine HCl 2 % MPF 5 ML VIAL INFILTRATI ×2 (14:14→14:15)
[2025-08-16] MEDS: oxyCODONE HCl Immed Release 5 MG TABLET PO (14:14)
[2025-08-16] MEDS: 0.9 % Sodium Chloride Flush 3 ML SYRINGE IVFLUSH (14:17)
[2025-08-16] MEDS: Lactated Ringers 1,000 ML 80 ML IVCONT (14:17)
--- NOTE | 2025-08-16 14:23 | PM.HPGS ---
History of Present Illness History of Present Illness Date of Service: 08/16/25 <FREDDIE Rivera Last Filed: 08/16/25 14:40> 08/16/25 <Demetri Mariano PA-C - Last Filed: 08/16/25 14:53> Chief complaint: Gluteal Abscess <FREDDIE Rivera Last Filed: 08/16/25 14:40> Narrative: Isidro Avendano is a 54 year old male with history of perirectal abscesses who presented with perirectal pain since Saturday. He reports he developed acute onset of pain on his right buttock Saturday morning. It was similar to his prior episode in 02/15 when he required I&D of b/l perirectal abscesses in the OR. He reports the pain became more severe on Saturday and couldn't take the pain anymore prompting him to seek evaluation in the ED. He denies fevers, chills, nausea, vomiting, diarrhea. He denies trauma or bites to the area. He denies drainage. WOrk up in the ED included CBC, BMP, LFTs which was significant for a leukocytosis of 15.8. Lactic acid normal. CT scan abd pelvis was obtained which showed rim-enhancing fluid collection in the right perianal region measuring approximately 5.5 x 2.8 x 2.6 cm. He reports feeling better after morphine. He also notes difficulty voiding since this morning. He denies dysuria, hematuria. <FREDDIE Rivera Last Filed: 08/16/25 14:40> Review of Systems Constitutional: Constitutional: Denies chills and Denies fever(s) <FREDDIE Rivera Last Filed: 08/16/25 14:40> ENT: Denies dizziness <FREDDIE Rivera Last Filed: 08/16/25 14:40> Cardiovascular: Cardiovascular: Denies chest pain and Denies dyspnea <FREDDIE Rivera Last Filed: 08/16/25 14:40> Respiratory: Respiratory: Denies dyspnea <FREDDIE Rivera Last Filed: 08/16/25 14:40> Gastrointestinal: Gastrointestinal: Denies abdominal pain, Denies diarrhea, Denies nausea and Denies vomiting <Ashly Farr PA-C Last Filed: 08/16/25 14:40> Genitourinary: Genitourinary: Reports as per HPI <Ashly Farr PA-C Last Filed: 08/16/25 14:40> Integumentary/Breasts: Skin/Breast: Denies jaundice <Ashly Farr PA-C Last Filed: 08/16/25 14:40> Neurologic: Denies dizziness <Ashly Farr PA-C Last Filed: 08/16/25 14:40> PMF Past Medical History Medical History: Medical History ETOH abuse Perirectal abscess <Ashly Farr PA-C Last Filed: 08/16/25 14:40> Surgical History Surgical History: Surgical History Hx of colonoscopy History of incision and drainage <Ashly Farr PA-C Last Filed: 08/16/25 14:40> Social History Social History: Social History Comment: counts correct Patient Tobacco Use Status: Current everyday Tobacco user Tobacco use type: Cigarette Advance Directives: Yes Advance Directives Information Provided: No Advance Directives on File: No <Ashly Farr PA-C Last Filed: 08/16/25 14:40> Meds Allergies/Adverse reactions: Allergies Allergy/AdvReac Type Severity Reaction Status Date / Time No Known Allergies (No Known Allergy Verified 08/16/25 09:08 Allergies*) <Ashly Farr PA-C Last Filed: 08/16/25 14:40> Active Medications: Current Medications Acetaminophen (Acetaminophen 325 Mg Tablet) 650 mg PO Q6H PRN PRN Reason: Pain, Mild 1-3,fever,headache Calcium Carbonate (Calcium Carbonate 750 Mg Tab.Chew) 750 mg PO Q4H PRN PRN Reason: Heartburn Docusate Sodium (Docusate Sodium 100 Mg Capsule) 100 mg PO BID BIGG Lactated Ringer's (Lr) 1,000 mls @ 80 mls/hr IVCONT .[id number] [facility] Last Admin: 08/16/25 14:17 Dose: 80 mls/hr Piperacillin Sod/Tazobactam (Sod 3.375 gm/ Sodium Chloride) 50 mls @ 100 mls/hr IV Q6H [facility] Magnesium Hydroxide (Milk Of Magnesia 30 Ml Oral.Susp) 30 ml PO DAILY PRN PRN Reason: Constipation Melatonin (Melatonin 3 Mg Tablet) 6 mg PO BEDTIME PRN PRN Reason: Insomnia Morphine Sulfate (Morphine Sulfate 4 Mg/Ml Cartridge) 4 mg IVPUSH Q4H PRN; Protocol PRN Reason: Pain, Severe (Pain Scale 7-10) Ondansetron HCl (Ondansetron Hcl 4 Mg/2 Ml Vial) 4 mg IVPUSH Q8H PRN PRN Reason: Nausea and Vomiting Oxycodone HCl (Oxycodone Hcl Immed Release 5 Mg Tablet) 5 mg PO Q4H PRN PRN Reason: Pain, Moderate(Pain Scale 4-6) Last Admin: 08/16/25 14:14 Dose: 5 mg Sodium Chloride (0.9 % Sodium Chloride Flush 3 Ml Syringe) 3 ml IVFLUSH QSHIFT [facility] Last Admin: 08/16/25 14:17 Dose: 3 ml <Ashly Farr PA-C - Last Filed: 08/16/25 14:40> Home medications: Home Medications ?Medication ?Instructions ?Recorded ?Confirmed ?Last Taken ?Type albuterol sulfate 90 mcg/actuation 2 puff inhalation Q4H PRN wheezing 01/23/24 01/23/24 01/16/24 History aerosol inhaler <Ashly Farr PA-C - Last Filed: 08/16/25 14:40> Physical Exam Vital Signs: Vital Signs: Last Vital Signs Temp 97.8 F 08/16/25 09:03 Pulse 89 08/16/25 12:29 Resp 20 08/16/25 12:29 BP 135/88 08/16/25 12:29 Pulse Ox 99 08/16/25 12:29 O2 Del Method Room Air 08/16/25 12:29 BMI result Body Mass Index 27.1 <FREDDIE Rivera Last Filed: 08/16/25 14:40> Const: General: comfortable, no acute distress and alert <Ashly Farr PA-C Mena Last Filed: 08/16/25 14:40> Orientation/consciousness: patient oriented x3 <Ashly Farr PA-C Mena Last Filed: 08/16/25 14:40> Resp: Effort & Inspection: normal respiratory effort <Ashly Farr PA-C Mena Last Filed: 08/16/25 14:40> Skin: Other: right mid gluteal region with 4x3 cm round fluctuant area with mild erythema, very tender to palpation left perianal region with scattered areas of scarring, no fluctuance, no erythema or edema <Ashly Farr PA-C Mena Last Filed: 08/16/25 14:40> Neuro: General: patient oriented x3 and moves all extremities <Ashly Farr PA-C Mena Last Filed: 08/16/25 14:40> Extrem: General: Yes no clubbing, cyanosis or edema <Ashly Farr PA-C Mena Last Filed: 08/16/25 14:40> Results Results Labs: Short CBC 08/16/25 Range/Units 09:46 WBC 15.8 H (4.8-10.8) X10*3/uL Hgb 15.7 (14.0-18.0) g/dl Hct 44.2 (42.0-52.0) % Plt Count 268 (160-400) X10*3/uL BMP 08/16/25 09:46 Sodium 135 Potassium 4.0 Chloride 104 Carbon Dioxide 25 BUN 8 L Creatinine 0.63 Calcium 9.5 Liver Function 08/16/25 Range/Units 09:46 Total Bilirubin 0.7 (0.0-1.0) mg/dL AST 23 (5-37) U/L ALT 15 (0-40) U/L Alkaline Phosphatase 75 (39-117) U/L Albumin 4.2 (3.5-5.0) g/dL <FREDDIE Rivera Last Filed: 08/16/25 14:40> Abdomen CT scan report/results: report reviewed and image reviewed <FREDDIE Rivera Last Filed: 08/16/25 14:40> Additional studies: labs reviewed <Ashly Farr PA-C - Last Filed: 08/16/25 14:40> Assessment and Plan (1) Gluteal abscess: Status: Acute <Ashly Farr PA-C - Last Filed: 08/16/25 14:40> 54 year old male with history of perirectal abscesses who presented with perirectal pain since Saturday with leukocytosis and fluctuant and tender area of his right gluteal region with mild surrounding cellulitis, consistent with an abscess. The area is very superficial and therefore recommended proceeding with I&D at bedside of the abscess. He is in agreement. Please see procedure note for details. Discussed admission for one night of IV abx given his leukocytosis. He has been started on IV abx, gentle IV hydration. Sebaceous, purulent material drained from collection most consistent with infected epidermal cyst. F/u culture results. Bowel regimen for stool burden. <Ashly Farr PA-C - Last Filed: 08/16/25 14:40> Quality Stroke Does the patient have a stroke diagnosis?: No <Ashly Farr PA-C - Last Filed: 08/16/25 14:40> VTE Prior VTE?: No <Ashly Farr PA-C - Last Filed: 08/16/25 14:40> VTE Risk Level:: Surgical - low <Ashly Farr PA-C - Last Filed: 08/16/25 14:40> VTE Device Contraindication: N/A - Device Ordered <Ashly Farr PA-C - Last Filed: 08/16/25 14:40> VTE Drug Contraindication: N/A - Med Ordered <Ashly Farr PA-C - Last Filed: 08/16/25 14:40> Procedures Date of Service Date of Service: 08/16/25 <Ashly Farr PA-C - Last Filed: 08/16/25 14:40> 08/16/25 <Demetri Mariano PA-C - Last Filed: 08/16/25 14:53> Abscess I/D Consent for Procedure: Elective - informed consent obtained <Demetri Mariano PA-C - Last Filed: 08/16/25 14:53> Site: other (gluteal) <Demetri Mariano PA-C - Last Filed: 08/16/25 14:53> Side (if applicable): right <FREDDIE Lorenzo Last Filed: 08/16/25 14:53> Sedation/analgesia: none <FREDDIE Lorenzo Last Filed: 08/16/25 14:53> Anesthetic used: lidocaine 2% <FREDDIE Lorenzo Last Filed: 08/16/25 14:53> Technique: incised with #11 blade <FREDDIE Lorenzo Last Filed: 08/16/25 14:53> Amount of fluid (mL): 20 <FREDDIE Lorenzo Last Filed: 08/16/25 14:53> Irrigation: No <FREDDIE Lorenzo Last Filed: 08/16/25 14:53> Packing used?: iodoform <FREDDIE Lorenzo Last Filed: 08/16/25 14:53> Additional comments: consent was obtained. the area was prepped with betadine. I generously infiltrated the area with 2% lidocaine. a 1.5 cm incision was made with and 11 blade and thick purulent material was able to be expressed. culture was obtained. I then expressed the discharge out. i used a snap to break up any further loculations. The wound was packed with 1/2 in iodoform packing and drressed with gauze and ABD. He tolerated the procedure well, and there were no immediate complications. <FREDDIE Lorenzo Last Filed: 08/16/25 14:53>
[2025-08-16 14:59] LABS: Appearance Urine Clear; Glucose Urine UA Negative (Negative); PH 6.5 (5.0-9.0); Specific Gravity - Urine >= 1.030 (1.005-1.025)
[2025-08-16 15:25] VITALS: BP 134/85; PULSE 86; RESP 16; O2SAT 99
--- NOTE | 2025-08-16 15:44 | PHA.MEDREC ---
Addendum entered by Blank Hannon RPh 08/16/25 15:48: Reviewed by [facility] Original Note: Pharmacy Consult ? Medication Reconciliation Pharmacy has completed the medication reconciliation. Spoke with pt and confirmed his medications. Pt has on hand an old Pro-air inhaler he still uses as needed for shortness of breath or wheezing and he takes Colloidal Silver Cream as needed and Colloidal Silver [place] QD OTC.
[2025-08-16 16:32] VITALS: BP 124/89; PULSE 107; RESP 16; TEMP 37.7; O2SAT 99
--- NOTE | 2025-08-16 17:01 | HO.NURTONUR ---
54yo M with hx of perirectal abscesses, last I&D done 01/2025. Pt reports rt buttock pain x2 days, worsening this am. CT showed rt perirectal abscess. Bld cxs x2 obtained. Surgery at bedside for I&D. Wound culture sent. Pt received IV zosyn. Pain controlled with morphine and oxycodone. Pt reported difficulty urinating initially however was able to urinate 400ml. Reports constipation. 20LFA with LR@80ml/hr infusing. Regular diet ordered. Neuro intact. Ambulates independently. VSS. NAD. at bedside.
[2025-08-16 18:29] VITALS: BMI 27.1
[2025-08-16 20:00] VITALS: BP 137/90; PULSE 107; RESP 20; TEMP 37.4; O2SAT 96
[2025-08-17] MEDS: oxyCODONE HCl Immed Release 5 MG TABLET PO (01:52)
[2025-08-17 03:10] VITALS: BP 125/73; PULSE 100; RESP 18; TEMP 37.5; O2SAT 94
[2025-08-17] MEDS: Lactated Ringers 1,000 ML 80 ML IVCONT (04:56)
[2025-08-17 07:33] VITALS: BP 127/82; PULSE 103; RESP 12; TEMP 36.4; O2SAT 95
--- NOTE | 2025-08-17 08:13 | P.PNGS_ITS ---
Subjective Subjective Date of Service: 08/17/25 Interval history: feeling much improved. pain is minimal, mostly related to the dressings pulling on the hair. denies fevers of chills. His urinary symptoms have improved, able to urinate without issues overnight. passing lots of gas, feels like a bowel movement is coming Physical Exam 2 Vital Signs: Vital Signs: Last Vital Signs Temp 97.5 F 08/17/25 07:33 Pulse 103 H 08/17/25 07:33 Resp 12 08/17/25 07:33 BP 127/82 08/17/25 07:33 Pulse Ox 95 08/17/25 07:33 O2 Del Method Room Air 08/17/25 07:33 BMI result Body Mass Index 27.1 Const: General: comfortable and no acute distress O rientation/consciousness: patient oriented x3 Resp: Effort & Inspection: normal respiratory effort and able to speak in complete sentences GI: Other: right glute: I&D site dressings and packing removed. minimal drainage, serosanguenious. no further purulence, 1 cm of tracking. improvement in induration and cellulitis Neuro: General: patient oriented x3 Objective Data Active Medications Acetaminophen (Acetaminophen 325 Mg Tablet) 650 mg PO Q6H PRN PRN Reason: Pain, Mild 1-3,fever,headache Calcium Carbonate (Calcium Carbonate 750 Mg Tab.Chew) 750 mg PO Q4H PRN PRN Reason: Heartburn Docusate Sodium (Docusate Sodium 100 Mg Capsule) 100 mg PO BID [facility] Last Admin: 08/17/25 07:49 Dose: 100 mg Documented By: SOCO Lactated Ringer's (Lr) 1,000 mls @ 80 mls/hr IVCONT .[id number] [facility] Last Admin: 08/17/25 04:56 Dose: 80 mls/hr Documented By: ODRISGerhard Piperacillin Sod/Tazobactam (Sod 3.375 gm/ Sodium Chloride) 50 mls @ 100 mls/hr IV Q6H [facility] Last Admin: 08/17/25 07:48 Dose: 100 mls/hr Documented By: SOCO Magnesium Hydroxide (Milk Of Magnesia 30 Ml Oral.Susp) 30 ml PO DAILY PRN PRN Reason: Constipation Melatonin (Melatonin 3 Mg Tablet) 6 mg PO BEDTIME PRN PRN Reason: Insomnia Morphine Sulfate (Morphine Sulfate 4 Mg/Ml Cartridge) 4 mg IVPUSH Q4H PRN; Protocol PRN Reason: Pain, Severe (Pain Scale 7-10) Ondansetron HCl (Ondansetron Hcl 4 Mg/2 Ml Vial) 4 mg IVPUSH Q8H PRN PRN Reason: Nausea and Vomiting Oxycodone HCl (Oxycodone Hcl Immed Release 5 Mg Tablet) 5 mg PO Q4H PRN PRN Reason: Pain, Moderate(Pain Scale 4-6) Last Admin: 08/17/25 01:52 Dose: 5 mg Documented By: CHERYL Sodium Chloride (0.9 % Sodium Chloride Flush 3 Ml Syringe) [facility] Last Admin: 08/17/25 07:31 Dose: Not Given Documented By: SOCO Non-Admin Reason: IV Running Labs 08/17/25 05:56 08/16/25 09:46 Labs: Laboratory Results - last 24 hr 08/16/25 08/16/25 08/16/25 09:40 09:46 13:52 MCV 90.4 MCH 32.1 MCHC 35.5 RDW 13.5 Plt Count 268 MPV 9.5 Immature Gran % (Auto) 0.4 Neut % (Auto) 82.4 H Lymph % (Auto) 8.3 L [place] % (Auto) 8.7 Eos % (Auto) 0.1 Baso % (Auto) 0.1 Lymph # (Auto) 1.3 [place] # (Auto) 1.4 H Eos # (Auto) 0.0 Baso # (Auto) 0.0 Abs Immat Gran (auto) 0.07 H Absolute Neuts (auto) 13.0 H Absolute Nucleated RBC 0.000 Nucleated RBC % (auto) 0.0 Smear Tech's Comments Anion Gap 10 L Estim Creat Clear Calc 148.8 Estimated GFR > 60 Random Glucose 113 Lactic Acid 0.9 Calcium 9.5 Total Bilirubin 0.7 AST 23 ALT 15 Alkaline Phosphatase 75 Total Protein 7.6 Albumin 4.2 Urine Color Urine Appearance Urine pH Ur Specific [place] Urine Protein Urine Glucose (UA) Urine Ketones Urine Blood Urine Nitrite Ur Leukocyte Esterase Stool Occult Blood NEGATIVE 08/16/25 08/17/25 14:49 05:56 MCV 91.0 MCH 31.3 MCHC 34.4 RDW 13.6 Plt Count 256 MPV 10.3 Immature Gran % (Auto) 0.8 H Neut % (Auto) 83.3 H Lymph % (Auto) 6.3 L [place] % (Auto) 9.3 Eos % (Auto) 0.1 Baso % (Auto) 0.2 Lymph # (Auto) 1.1 L [place] # (Auto) 1.7 H Eos # (Auto) 0.0 Baso # (Auto) 0.0 Abs Immat Gran (auto) 0.14 H Absolute Neuts (auto) 15.0 H Absolute Nucleated RBC 0.000 Nucleated RBC % (auto) 0.0 Smear Tech's Comments VERIFIED Anion Gap Estim Creat Clear Calc Estimated GFR Random Glucose Lactic Acid Calcium Total Bilirubin AST ALT Alkaline Phosphatase Total Protein Albumin Urine Color Yellow Urine Appearance Clear Urine pH 6.5 Ur Specific [place] >= 1.030 H Urine Protein Negative Urine Glucose (UA) Negative Urine Ketones 80 Urine Blood Negative Urine Nitrite Negative Ur Leukocyte Esterase Negative Stool Occult Blood Microbiology Microbiology Results: Microbiology 08/16/25 14:19 Gram Stain - Final Abscess Rectal Procedures Date of Service Date of Service: 08/17/25 Progress Note: A&P Assessment and plan (1) Status post incision and drainage: Status: Acute (2) Gluteal abscess: Status: Acute Plan 54 year old male admitted for gluteal abscess, s/p I&D. feeling much improved today. Significantly less pain. denies fevers or chills. His difficultly with urination has improved. feels ready to be discharged. On exam the area appears improved, surrounding cellulitis changes have improved, the wound remains open, scant serosanguenious drainaged on the dressings, packign removed. There is about 1 cm of tracking. I redressed this with fluffs and abd pad. There is an increase in his leukocytosis this morning, now 18, this may be reactive, possibly bacteremia. Blood cultures remain pending. wound cultures also pending, initial gram stain shows no organisms, 1+ epithelial cells. Will discharge today, he is to continue wound care daily at home, discussed technique, he and his are confident that they can care for this. He will cotninue with daily stiz baths at home. will send for 6 days of augmentin. will follow up in 1 week Time Spent With Patient Time: Total time managing care of this patient today ____ minutes. Quality Stroke Does the patient have a stroke diagnosis?: No VTE Prior VTE?: No VTE Risk Level:: Surgical - low VTE Device Contraindication: N/A - Device Ordered VTE Drug Contraindication: N/A - Med Ordered
--- NOTE | 2025-08-17 08:15 | MHC.CM.PN ---
PT REPORTS HE LIVES WITH HIS AND IS INDEPENDENT WITH CARE HE HAS NO DME OR SERVICES COPY OF HCP REQUESTED, HE REPORTS HIS IS HIS AGENT PCP: SARA ELLIOTT OBSERVATION NOTICE DELIVERED DCP: PT WILL DC HOME TODAY VIA PRIVATE TRANSPORT
--- NOTE | 2025-08-17 09:01 | PM.DS ---
DS: Providers Provider Date of Service: 08/17/25 Date of admission: 08/16/25 13:51 Date of discharge: 08/17/25 Primary care physician: SARAY Stapleton Admitting clinician: Rafael Mccormack Attending physician on admission: Rafael Mccormack Attending physician on discharge: Rafael Mccormack DS: Diagnosis Discharge Diagnosis (1) Status post incision and drainage: Status: Acute (2) Gluteal abscess: Status: Acute DS: Summary Hospital Course Hospital Course: Admission HPI: Isidro Avendano is a 54 year old male with history of perirectal abscesses who presented with perirectal pain since Saturday. He reports he developed acute onset of pain on his right buttock Saturday morning. It was similar to his prior episode in 02/15 when he required I&D of b/l perirectal abscesses in the OR. He reports the pain became more severe on Saturday and couldn't take the pain anymore prompting him to seek evaluation in the ED. He denies fevers, chills, nausea, vomiting, diarrhea. He denies trauma or bites to the area. He denies drainage. WOrk up in the ED included CBC, BMP, LFTs which was significant for a leukocytosis of 15.8. Lactic acid normal. CT scan abd pelvis was obtained which showed rim-enhancing fluid collection in the right perianal region measuring approximately 5.5 x 2.8 x 2.6 cm. He reports feeling better after morphine. He also notes difficulty voiding since this morning. He denies dysuria, hematuria. Hospital course: Patient was admitted for right gluteal abscess. He was started on IV Zosyn. We performed a bedside I and D for which the patient tolerated well. Packing was put in place to facilitate drainage while inpatient. Cultures were obtained remain pending. Immediately after the I&D patient felt some relief of pressure. On the 2nd day of admission. Patient feeling much better pain is minimal. Wound appears improved today, less induration and erythema. That there was scant serosanguineous drainage, I removed the packing did not note any purulence draining at this time. There was about 1 cm tracking. His urinary symptoms have improved. He felt ready to be discharged. We will discharge home today, he will continue with daily wound care at home, recommended Sitz bath. He will have 6 days of Augmentin to take twice daily. He will follow up in the office. Time spent discussing smoking cessation with patient: 3 to 10 minutes Status at Discharge Functional status at discharge: independent ambulation Overall status at discharge: patient is progressing back to baseline Time Attestation Discharge Coordination Time (in mins): 30 Quality: Safe Use of Opioids Does Pt have an Active Cancer Diagnosis on the Problem List?: No Quality: Stroke Does the patient have a stroke diagnosis?: No Physical Exam Vital Signs: Vital Signs: Last Vital Signs Temp 97.5 F 08/17/25 07:33 Pulse 103 H 08/17/25 07:33 Resp 12 08/17/25 07:33 BP 127/82 08/17/25 07:33 Pulse Ox 95 08/17/25 07:33 O2 Del Method Room Air 08/17/25 07:33 BMI result Body Mass Index 27.1 Const: General: comfortable and no acute distress Orientation/consciousness: patient oriented x3 Resp: Effort & Inspection: normal respiratory effort and able to speak in complete sentences GI: Other: right glute: I&D site dressings and packing removed. minimal drainage, serosanguenious. no further purulence, 1 cm of tracking. improvement in induration and cellulitis Neuro: General: patient oriented x3 DS: Data Data Completed and Pending Labs on day of discharge: Laboratory Results - last 24 hr 08/16/25 08/16/25 08/16/25 09:40 09:46 13:52 WBC 15.8 H RBC 4.89 Hgb 15.7 Hct 44.2 MCV 90.4 MCH 32.1 MCHC 35.5 RDW 13.5 Plt Count 268 MPV 9.5 Immature Gran % (Auto) 0.4 Neut % (Auto) 82.4 H Lymph % (Auto) 8.3 L [place] % (Auto) 8.7 Eos % (Auto) 0.1 Baso % (Auto) 0.1 Lymph # (Auto) 1.3 [place] # (Auto) 1.4 H Eos # (Auto) 0.0 Baso # (Auto) 0.0 Abs Immat Gran (auto) 0.07 H Absolute Neuts (auto) 13.0 H Absolute Nucleated RBC 0.000 Nucleated RBC % (auto) 0.0 Smear Tech's Comments Sodium 135 Potassium 4.0 Chloride 104 Carbon Dioxide 25 Anion Gap 10 L BUN 8 L Creatinine 0.63 Estim Creat Clear Calc 148.8 Estimated GFR > 60 Random Glucose 113 Lactic Acid 0.9 Calcium 9.5 Total Bilirubin 0.7 AST 23 ALT 15 Alkaline Phosphatase 75 Total Protein 7.6 Albumin 4.2 Urine Color Urine Appearance Urine pH Ur Specific [place] Urine Protein Urine Glucose (UA) Urine Ketones Urine Blood Urine Nitrite Ur Leukocyte Esterase Stool Occult Blood NEGATIVE 08/16/25 08/17/25 14:49 05:56 WBC 18.0 H RBC 4.67 Hgb 14.6 Hct 42.5 MCV 91.0 MCH 31.3 MCHC 34.4 RDW 13.6 Plt Count 256 MPV 10.3 Immature Gran % (Auto) 0.8 H Neut % (Auto) 83.3 H Lymph % (Auto) 6.3 L [place] % (Auto) 9.3 Eos % (Auto) 0.1 Baso % (Auto) 0.2 Lymph # (Auto) 1.1 L [place] # (Auto) 1.7 H Eos # (Auto) 0.0 Baso # (Auto) 0.0 Abs Immat Gran (auto) 0.14 H Absolute Neuts (auto) 15.0 H Absolute Nucleated RBC 0.000 Nucleated RBC % (auto) 0.0 Smear Tech's Comments VERIFIED Sodium Potassium Chloride Carbon Dioxide Anion Gap BUN Creatinine Estim Creat Clear Calc Estimated GFR Random Glucose Lactic Acid Calcium Total Bilirubin AST ALT Alkaline Phosphatase Total Protein Albumin Urine Color Yellow Urine Appearance Clear Urine pH 6.5 Ur Specific [place] >= 1.030 H Urine Protein Negative Urine Glucose (UA) Negative Urine Ketones 80 Urine Blood Negative Urine Nitrite Negative Ur Leukocyte Esterase Negative Stool Occult Blood Preliminary micro results at discharge 08/16/25 14:19 Routine Culture - Preliminary Abscess Rectal No growth to date. Discharge Plan Discharge Anticipated Discharge Date/Time: 08/17/25 07:43 Patient Disposition: Home, Self-Care Referrals: Komal Crum PA [Primary Care Provider, Internal Medicine] - 1 Week Discharge Medications: New docusate sodium [Colace] 100 mg capsule 100 mg PO BID Qty: 30 0RF amoxicillin-pot clavulanate 875-125 mg tablet 1 tab PO BID Qty: 12 0RF Continued albuterol sulfate 90 mcg/actuation Hfa Aerosol Inhaler 2 puff INHALATION Q4-6H PRN (Reason: Shortness Of Breath Or Wheezing) Discharge Orders: Discharge Order (Routine); Ordered 08/17/25 Ordered By: Demetri Mariano Diet: Advance to usual diet Activity on Discharge: As tolerated Stand Alone Forms: Patient Portal Discharge page, Work/School Release Print Language: Hungarian Activity Restrictions/Additional Instructions: Hot sitz baths three times a day and after bowel movements. Massage area of the abscess a few times times a day to facilitate drainage. Dry dressing to drainage site while it remains open and draining. Change daily and as needed. Finish your antibiotics as prescribed. Follow up in office in a week for a wound check. ([phone]) Call Your Doctor Or Return to ED If: ? ? -Your temperature exceeds 101.5? F? ? ? -You experience excessive pain or swelling ? ? -You have an unexpected reaction to medication ? ? -You experience continued vomiting/nausea Care Plan Goals: Return to baseline health and resume normal activities. Wound healing. Health Concerns: infected cyst gluteal abscess Plan of Treatment: s/p incision and drainage IV transitioned to oral antibiotics follow up in the office in 1 week for wound check Assessment: Improved Patient Instructions: Abscess (GEN) Discharge Date/Time: 08/17/25 08:40
--- NOTE | 2025-08-17 09:26 | MHC.CM.PN ---
pt dcd home self care prior to being seen by cm
== END 2025-08-17 08:40 | disposition home or self-care (01) ==
LOC: HO.ED 09:24 → HO.EDOVER 14:13 → HO.S3 16:52
PROVIDERS: Physician Assistant; Admitting Provider Physician Assistant Surgical; Emergency Provider Emergency Medicine; PCP Physician Assistant; Visit Provider Physician Assistant Surgical
DX: L02.31 Cutaneous abscess of buttock (principal); K59.00 Constipation, unspecified; K62.89 Other specified diseases of anus and rectum; R39.198 Other difficulties with micturition; Z79.899 Other long term (current) drug therapy
CPT/HCPCS: 10060; 36415; 74018; 74177; 80053; 81003; 82272; 83605; 85025; 87040; 87070; 87205; 96361; 96365; 96375; 96376; 99221; 99285; J2003; J2270; J2543; J7120; Q9967

== ENCOUNTER → 2025-08-16 09:17 | Outpatient (BNV) | payer BC, SELFPAY | PROVIDERS: Emergency Provider Emergency Medicine; PCP Physician Assistant; Visit Provider Radiology Diagnostic Radiology | DX: L02.215 Cutaneous abscess of perineum (principal); K62.89 Other specified diseases of anus and rectum; K59.00 Constipation, unspecified | CPT/HCPCS: 74018; 74177 ==

== ENCOUNTER → 2025-08-16 13:51 | Outpatient (BNV) | payer BC, SELFPAY | PROVIDERS: Admitting Provider Physician Assistant Surgical; Emergency Provider Emergency Medicine; PCP Physician Assistant; Visit Provider Physician Assistant Surgical | DX: Z98.890 Other specified postprocedural states (principal); L02.31 Cutaneous abscess of buttock | CPT/HCPCS: 10060; 99024; 99222; 99499 ==

== ENCOUNTER 2025-08-31 10:51 | Outpatient (AMB) | payer BC, SELFPAY ==
--- NOTE | 2025-08-31 10:56 | MHC.OFFVIS ---
Vital Signs 08/31/25 11:02 Height 6 ft Weight 190 lb BMI 25.8 BP 140/92 H Blood Pressure Location Rt brachial Position Sitting Pulse 105 H Intake Visit Reasons: perianal abscess, seen KELBY in ED Intake Note: Patient seen at [facility] ED for perianal abscess on 08-16-2025. Treated w/ course of Augmentin. Patient c/o: reports abscess healing, band-aids appear cleaned after changing. Reports normal BM. Imaging: CT abdomen and pelvis &KUB X-ray~ 08-16-2025 Hydrogenation Still Operator Required: No Accompanied by: spouse Analisa Allergies No Known Allergies (No Known Allergies*) Allergy (Verified 08/31/25 11:01) HPI HPI perianal abscess, seen KELBY in ED: Details: Doing well since discharge. For the 1st day had some bleeding and drainage from the incision site but this has steadily decreased now only requiring a Band-Aid, reporting minimal drainage when changing the Band-Aid. Has been showering after bowel movements to clean the area and keeping it dry and dressed. Denies any pain, no fevers or chills. Wants to prevent this from happening again. [facility] Medical History ETOH abuse Perirectal abscess Surgical History Hx of colonoscopy History of incision and drainage Social History Household Members: Spouse Housing: House Do you presently have visiting nurse or other home services: No Comment: counts correct Patient Tobacco Use Status: Current everyday Tobacco user Tobacco use type: Cigarette Cigarette Packs Per Day: 1 Cigarettes Per Day: 20.0 Years Smoked: 40 Second Hand Smoke Exposure: No Advance Directives Date on File: 08/16/25 service: No Review of Systems Const All systems reviewed & are unremarkable except as noted in HPI and below Physical Exam Vital Signs: Last Vital Signs Pulse 105 H 08/31/25 11:02 BP 140/92 H 08/31/25 11:02 BMI result Body Mass Index 25.8 Const General: comfortable and no acute distress Orientation/consciousness: patient oriented x3 Skin Other: Right glute: Small 1 cm incision and drainage site. Some deep induration likely the remaining cyst. No fluctuance. Nontender. Minimal serous drainage on Band-Aid. Neuro General: patient oriented x3 Assessment & Plan Assessment & Plan (1) Status post incision and drainage: Code(s): Z98.890 - Other specified postprocedural states Category: Surgical Plan 54-year-old male seen in the office for wound management following I&D of gluteal cyst in the ED. Patient overall doing well. Initially had some drainage over the 1st day but this is steadily decreased, now minimal on the dressing now only requiring a Band-Aid to cover. Has been keeping the area clean and dry. Denies pain. Denies fevers or chills. On exam the wound appears to be healing. It is nontender. There was still a small 1 cm opening with some scant serous drainage on the Band-Aid when I removed it. There was some deep induration which may be result of inflammation of the area from the incision and drainage, also could be some retained cyst as we are unable to remove the sac at the time of incision and drainage. We discussed that this may the to recurrence due to the remaining sac. He does not want to do everything he can to prevent this happening in the future we discussed options for treatment going forward including observation versus surgical excision of the cyst. He and his partner would like to think about this and we will call the office to schedule an appointment if they decide that they want to pursue surgical excision. For now he should continue with keeping the area covered with a Band-Aid while the wound remains open. Once clothes he is okay to leave this open to air. Should continue to keep the area clean and dry as best as possible. Now requiring scheduled follow-up, he is to call when he makes a decision on his goals of care going forward Coding Level of Care Code New Pt Level 3 (54711) Diagnoses Status post incision and drainage Z98.890
[2025-08-31 11:02] VITALS: BP 140/92; PULSE 105; BMI 25.8
--- OUTSIDE RECORDS SUMMARY | 2025-08-31 13:20 | XMS_ITS | Clinical Summary ---
Author Organization [address] [facility] Address [address] [place] [address] Phone Care Team Providers Care Radiagraph Operator Name Role Phone Unavailable Primary Care Provider Unavailabl e Allergies No known active allergies Medications albuterol HFA (PROAIR HFA ; PROVENTIL HFA ; VENTOLIN HFA) 90 mcg/actuation inhaler Inhale 2 puffs by mouth every 6 (six) hours if needed for wheezing. Active Encounters Date Type Department Care Team Description 08/09/2025 11:15 AM EDT Consult General Surgery - [employer] [address] [facility] [address] [place] [address] Blaise Ibarra MD Dysplastic nevus [...] Health Maintenance Due Date Last Done Comments Colorectal Cancer Screening: Colonoscopy 1971 Hepatitis A Vaccines (1 of 2 - Risk 2-dose series) 1990 Hepatitis B Vaccines (1 of 3 - 19+ 3-dose series) 1990 DTaP,Tdap,and Td Vaccines (2 - Td or Tdap) 01/11/2016 01/11/2006 Pneumococcal Vaccine: 50+ Years (2 of 2 - PCV) 04/25/2016 04/25/2015 Zoster Vaccines (1 of 2) 2021 Depression Screening 11/25/2024 Cholesterol Screening (Lipid Panel) 06/11/2025 HIV Screening 06/11/2025 Hepatitis C Screening [...] patient's age to complete this topic Insurance [facility]
== END 2025-08-31 11:13 | disposition home or self-care (01) ==
LOC: HO.HGS 10:51
PROVIDERS: PCP Physician Assistant
DX: Z98.890 Other specified postprocedural states (principal)
CPT/HCPCS: 99213

== ENCOUNTER 2025-09-14 09:27 | Outpatient (AMB) | payer BC, SELFPAY ==
--- NOTE | 2025-09-14 09:28 | MHC.OFFVIS ---
Vital Signs 09/14/25 09:35 Height 6 ft Weight 192 lb BMI 26.0 BP 150/93 H Blood Pressure Location Rt brachial Position Sitting Pulse 99 Intake Visit Reasons: perianal abscess Intake Note: Patient here for 2wk follow up for wound check I&D of gluteal cyst @ ED. FRANCIE (KELBY) 08-31-2025. Patient c/o: no concerns. Reports abscess dried up. Denies oozing, pain. No longer taking stool softener. Reports normal BM. Hand Knitter Required: No Accompanied by: spouse Analisa Allergies No Known Allergies (No Known Allergies*) Allergy (Verified 09/14/25 09:34) HPI HPI perianal abscess: Details: Doing well, denies pain or drainage from the previous I&D site. He does state that he feels a small nodule that remains there. He is here to discuss surgical excision of this area as is recurred multiple times and he does not want this to recur again. he was under the impression that he was having a procedure today. He denies significant medical history, does use albuterol inhaler as needed. Denies cardiac history. Denies history of diabetes. Denies blood thinner use. Patient is a current pack per day smoker. [facility] Medical History ETOH abuse Perirectal abscess Surgical History Hx of colonoscopy History of incision and drainage Social History Household Members: Spouse Housing: House Do you presently have visiting nurse or other home services: No Comment: counts correct Patient Tobacco Use Status: Current everyday Tobacco user Tobacco use type: Cigarette Cigarette Packs Per Day: 1 Cigarettes Per Day: 20.0 Years Smoked: 40 Second Hand Smoke Exposure: No Advance Directives Date on File: 08/16/25 service: No Physical Exam Vital Signs: Last Vital Signs Pulse 99 09/14/25 09:35 BP 150/93 H 09/14/25 09:35 BMI result Body Mass Index 26.0 Const General: comfortable and no acute distress Orientation/consciousness: patient oriented x3 Resp Effort & Inspection: normal respiratory effort and able to speak in complete sentences GI Other: Right glute: Well healed incision from previous incision and drainage with some evidence of palpable cord. No fluctuance or erythema. Nontender Neuro General: patient oriented x3 Assessment & Plan Assessment & Plan (1) Perianal cyst: Code(s): K62.89 - Other specified diseases of anus and rectum Category: Medical Plan 54-year-old otherwise healthy male returning to the office to pursue surgical intervention for recurrent right gluteal cyst. Patient is status post I&D of this cyst on 08/16/2025. States this has recurred multiple times and he would like to get this out so he does not have to deal with any future recurrence. He states the wound is healed nicely, is no longer painful or draining. On exam there is a well healed incision and drainage site deep induration possible retained cyst, there was also evidence of a cord which may represent some tracking towards the rectum. There was no concern for current infection. He denies any significant medical history. Daily medications include occasional albuterol inhaler as needed. He does not take blood thinners, he denies any cardiac history there is no history of diabetes. He is a current everyday smoker, a pack per day. I did educate him that ideally he should abstain from smoking prior to this procedure and after to promote optimal wound healing. He is agreeing to at least decrease his smoking prior to the procedure. He was under the impression that he was having a procedure today, given the possible tracking of the cyst towards the rectum it is best to proceed with this under anesthesia. I introduced the patient to our surgeon Dr. Mccormack who evaluated the patient. We discussed risks, benefits, alternatives. Patient like to proceed with surgical excision of the cyst. Surgical booking slip was filled out and given to her surgical schedule who will reach out to him regarding a date for the surgery. He is to call with any concerns or questions prior to the procedure. Coding Level of Care Code Est Pt Level 4 (39846) Diagnoses Perianal cyst K62.89
[2025-09-14 09:35] VITALS: BP 150/93; PULSE 99; BMI 26.0
== END 2025-09-14 09:46 | disposition home or self-care (01) ==
LOC: HO.HGS 09:28
PROVIDERS: PCP Physician Assistant
DX: K62.89 Other specified diseases of anus and rectum (principal)
CPT/HCPCS: 99214

== ENCOUNTER 2025-09-23 06:36 | Day surgery (SDC) | payer BC, SELFPAY ==
--- OUTSIDE RECORDS SUMMARY | 2025-09-15 19:16 | XMS_ITS | Clinical Summary ---
Author Organization 175 [facility] Address [address] [place] [address] Phone Care Team Providers Care Chief Telephone Operator Name Role Phone Unavailable Primary Care Provider Unavailabl e Allergies No known active allergies Medications albuterol HFA (PROAIR HFA ; PROVENTIL HFA ; VENTOLIN HFA) 90 mcg/actuation inhaler Inhale 2 puffs by mouth every 6 (six) hours if needed for wheezing. Active Encounters Date Type Department Care Team Description 08/09/2025 11:15 AM EDT Consult General Surgery - [place] [address] [facility] [address] [place] [address] Blaise Ibarra MD Dysplastic nevus [...] (2 of 2 - PCV) 04/25/2016 04/25/2015 RSV Immunization Adult Patients (1 - Risk 50-74 years 1-dose series) 2021 Zoster Vaccines (1 of 2) 2021 Depression Screening 11/25/2024 Cholesterol Screening (Lipid Panel) 06/11/2025 HIV Screening 06/11/2025 Hepatitis C Screening 06/11/2025 Social Influencers of Health Screening 06/11/2025 COVID-19 Vaccine (3 - 2024-2 6 season) 2025 09/19/2021, 08/22/2021 Influenza Vaccine (#1) 2025 HIB Vaccines Aged Out No longer eligi [...] age to complete this topic Insurance [facility]
--- NOTE | 2025-09-21 09:51 | HO.ANESPROP2 ---
Documented by User: Staci Bui NP 09/22/25 10:33 HPI - Anesthesia Eval Consult details Narrative: 54yo M for Excision Perianal Cyst ETOH abuse - 3 beers + 3 nips daily Smoker THC daily AAA @ 4.7cm followed by PCP [facility] Active Problems Active Problems: All Active Problems Perianal cyst (Acute) Status post incision and drainage (Acute) Past Medical History Medical History Lumbar spine tumor Right clavicle fracture Brain bleed (~2021) Seasonal affective disorder Dysplastic nevus of skin Social phobia Back pain Cigarette smoker Chest pain Acute radial nerve palsy Asthma Alcoholism Anxiety GERD (gastroesophageal reflux disease) Thoracic aortic aneurysm (TAA) ETOH abuse Perirectal abscess Surgical History Surgical History Hx of colonoscopy History of incision and drainage History of Problems with Anesthesia: No Social History Social History Household Members: Spouse Housing: House Do you presently have visiting nurse or other home services: No Comment: counts correct Patient Tobacco Use Status: Current everyday Tobacco user Tobacco use type: Cigarette Cigarette Packs Per Day: 1 Cigarettes Per Day: 20.0 Years Smoked: 40 Second Hand Smoke Exposure: No Use of substances other than those prescribed or required for medical reasons: Yes Substance Use Frequency: Daily Have you been hit, kicked, punched, or otherwise hurt by someone within the past year? If so, by whom?: No Are you DNR?: No Advance Directives: No Advance Directives Information Provided: Yes Advance Directives on File: Yes Advance Directives Date on File: 08/16/25 service: No Meds Allergies Allergy/AdvReac Type Severity Reaction Status Date / Time No Known Allergies (No Known Allergy Verified 09/23/25 07:41 Allergies*) Home Medications ?Medication ?Instructions ?Recorded ?Confirmed ?Last Taken ?Type albuterol sulfate 90 mcg/actuation 2 puff inhalation Q4-6H PRN 08/16/25 09/22/25 Unknown History aerosol inhaler Shortness Of Breath Or Wheezing ibuprofen 200 mg tablet 200 mg PO DAILY PRN Pain 09/22/25 09/22/25 09/22/25 History Exam Pertinent Lab Results Pertinent Lab Results: Laboratory Tests 08/16/25 08/17/25 09:46 05:56 WBC 18.0 H Hgb 14.6 Hct 42.5 Plt Count 256 Sodium 135 Potassium 4.0 Chloride 104 Carbon Dioxide 25 BUN 8 L Creatinine 0.63 Total Bilirubin 0.7 AST 23 ALT 15 Alkaline Phosphatase 75 Total Protein 7.6 Albumin 4.2 Narrative Narrative: Chest CT 07/2025 IMPRESSION: Mild prominence of the aorta at the sinuses of Valsalva measuring up to 4.4 x 4.7 cm , similar to prior study. The remainder of the aorta is normal in caliber. Assessment and Plan Assessment Anesthesia Assessment: Chart Reviewed Final Anesthetic Review History of Problems with Anesthesia: No Documented by User: Jazmin Ly MD 09/23/25 08:08 [facility] Past Medical History Medical History Lumbar spine tumor Right clavicle fracture Brain bleed (~2021) Seasonal affective disorder Dysplastic nevus of skin Social phobia Back pain Cigarette smoker Chest pain Acute radial nerve palsy Asthma Alcoholism Anxiety GERD (gastroesophageal reflux disease) Thoracic aortic aneurysm (TAA) ETOH abuse Perirectal abscess Family History Family history of problems with anesthesia: No Surgical History Surgical History Hx of colonoscopy History of incision and drainage Social History Social History Household Members: Spouse Housing: House Do you presently have visiting nurse or other home services: No Comment: counts correct Patient Tobacco Use Status: Current everyday Tobacco user Tobacco use type: Cigarette Cigarette Packs Per Day: 1 Cigarettes Per Day: 20.0 Years Smoked: 40 Second Hand Smoke Exposure: No Use of substances other than those prescribed or required for medical reasons: Yes Substance Use Frequency: Daily Have you been hit, kicked, punched, or otherwise hurt by someone within the past year? If so, by whom?: No Are you DNR?: No Advance Directives: No Advance Directives Information Provided: Yes Advance Directives on File: Yes Advance Directives Date on File: 08/16/25 service: No Meds Allergies Allergy/AdvReac Type Severity Reaction Status Date / Time No Known Allergies (No Known Allergy Verified 09/23/25 07:41 Allergies*) Home Medications ?Medication ?Instructions ?Recorded ?Confirmed ?Last Taken ?Type albuterol sulfate 90 mcg/actuation 2 puff inhalation Q4-6H PRN 08/16/25 09/22/25 Unknown History aerosol inhaler Shortness Of Breath Or Wheezing ibuprofen 200 mg tablet 200 mg PO DAILY PRN Pain 09/22/25 09/22/25 09/22/25 History Exam Airway Mallampati Class: II TM Dist: >3cm Neck ROM: Full Heart: rrr Lungs: cta Assessment and Plan Assessment Anesthesia Assessment: Anesthesia Plan Discussed Final Anesthetic Review Family History of Problems with Anesthesia: No NPO: Yes ASA Class: III Final Preanesthetic Review: No Changes in Pt Med Stat, Meds/Allgs Chart Reviewed, Consent Obtained/Reviewed and Anes Risks/Benef Reviewed Patient Risk: Intermediate Procedure Risk: Low Anesthetic Plan Anesthetic Plan: GA, MAC: and Agree w/ Assess. and Plan Disposition: Standard PACU
[2025-09-22 09:55] VITALS: BMI 26.2
[2025-09-23] MEDS: Lactated Ringers 1,000 ML 100 ML IVCONT (07:15)
[2025-09-23 07:16] VITALS: BMI 25.8
[2025-09-23 07:17] VITALS: BP 135/85; PULSE 87; RESP 15; TEMP 36.6; O2SAT 95
--- NOTE | 2025-09-23 09:05 | MHC.SHP ---
Pre-Procedural Eval Section A - 24 Hr Update-Section A only Date of Service: 09/23/25 The patient is an INPATIENT: No Changes since office visit: Yes Patient answered all questions; No Cold of Flu in the past 2 weeks, No New Medical Problems and No Changes in Medication The patient has been examined within 24 hours of the surgical procedure. The History & Physical has been completed within 30 days and I have reviewed it.: No Section B - Complete if H&P > 30 days Chief Complaint: Other specified diseases of anus and rectum Details of Present Illness: Pt reports no pain or discharge from cyst Relevant Family History (Specify if Yes): No Relevant Social History: None Present Medications: None Medical History: No relevant PMH History of Previous Operations: No relevant previous surgery Allergies: Allergies Allergy/AdvReac Type Severity Reaction Status Date / Time No Known Allergies (No Known Allergy Verified 09/23/25 07:41 Allergies*) Review of Systems Sugical H&P ROS: Negative: Constitution, Cardiovascular, Respiratory, Neurological, Psychiatric, Hem-Onc, Allergic/Immunologic, Gastrointestinal, Genitourinary, Musculoskeletal, Integumentary, Endocrine and Eyes/Ears/Nose/Throat Exam Surgical H&P Exam: Normal: HEENT, Normal: Heart, Normal: Lungs, Normal: Extremities, Normal: Abdomen, Normal: Skin and Normal: Neurological Plan Diagnosis/Plan: Unchanged I have reviewed the history and physical and performed a pertinent physical examination on my patient. No changes have occurred unless specified. Reviewed the procedure, risks, and alternatives in detail with the patient he consents to the excision of perianal cyst. Time Spent With Patient Time: Total time managing care of this patient today ____ minutes.
--- NOTE | 2025-09-23 09:49 | P.OP_ITS ---
Operative Note Operative Note Date of Service: 09/23/25 Narrative: Preoperative diagnosis: Right gluteal perianal cyst Postoperative diagnosis: Same Procedure: Excision of right gluteal perianal cyst Surgeon: Rafael Mccormack MD Farmhand: Demetri Mariano PA-C Anesthesia: General endotracheal Indications for procedure: 54-year-old male patient with a recent infected perianal cyst which required incision and drainage, returning today for wide excision. Operative findings: Incision and drainage site in the right gluteal region approximately 1.5 cm in diameter Specimen: Perianal cyst right gluteus Estimated blood loss: 3 mL Complications: None Procedure details: Patient was brought to the OR and placed in a supine position. After administering general anesthesia he was placed into a prone position. Skin around the perianal cyst in the right gluteus was prepped with Betadine and draped in a sterile fashion. A surgical time-out was called the consent confirmed. Patient received preoperative antibiotics and Venodyne boots were in place. Local anesthesia was then infiltrated circumferentially around the lesion. An elliptical incision oriented transversely was then created with a scalpel and carried out through subcutaneous tissue. Sharp dissection was then used to dissect the cyst from the surrounding subcutaneous tissue. This was passed off the table sent to pathology for further examination. Wounds were checked for hemostasis with electrocautery. Wounds were irrigated with saline solution and suctioned dry. Dermis was then reapproximated using interrupted 3-0 Polysorb sutures. Skin was closed using interrupted 3-0 nylon sutures. Sterile dressings consisting of 4 x 4 gauze and Tegaderm were then applied. The patient tolerated the procedure well. Sponge, instrument, and needle counts reported as correct. The patient was transferred to PACU in stable condition.
[2025-09-23 09:58] VITALS: BP 154/76; PULSE 94; RESP 12; TEMP 36.7; O2SAT 98
[2025-09-23 10:03] VITALS: BP 131/79; PULSE 96; RESP 14; O2SAT 97
[2025-09-23 10:08] VITALS: BP 120/80; PULSE 91; RESP 16; O2SAT 97
[2025-09-23 10:13] VITALS: BP 127/83; PULSE 90; RESP 16; O2SAT 97
[2025-09-23 10:27] VITALS: BP 122/83; PULSE 91; RESP 16; TEMP 36.6; O2SAT 96
== END 2025-09-23 11:10 | disposition home or self-care (01) ==
PROVIDERS: PCP Physician Assistant; Visit Provider Surgery
PROC: 0DBQXZZ Excision of Anus, External Approach (ICD-10-PCS; CPT 11770; principal; 2025-09-23 09:00)
DX: K62.89 Other specified diseases of anus and rectum (principal); L05.91 Pilonidal cyst without abscess; F17.210 Nicotine dependence, cigarettes, uncomplicated
CPT/HCPCS: 11770; 88304; J0131; J0525; J1100; J2003; J2250; J2405; J2704; J3010

== ENCOUNTER → 2025-09-23 06:36 | Outpatient (BNV) | payer BC, SELFPAY | PROVIDERS: PCP Physician Assistant; Visit Provider Surgery | DX: L72.0 Epidermal cyst (principal); K62.89 Other specified diseases of anus and rectum | CPT/HCPCS: 11402 ==

== ENCOUNTER 2025-10-04 11:23 | Outpatient (AMB) | payer BC, SELFPAY ==
[2025-10-04 11:31] VITALS: BP 152/92; PULSE 107
--- NOTE | 2025-10-04 11:31 | MHC.OFFVIS ---
Vital Signs 10/04/25 11:31 Weight 191 lb BP 152/92 H Blood Pressure Location Rt brachial Position Sitting Pulse 107 H Intake Visit Reasons: S/P excision perianal cyst Intake Note: Patient here s/p cyst excision on perianal skin. Patient c/o: states only changed bandage for 3d after procedure. Bandaid became irritated while at work. has been checking area and reports no concerns of infection. WLE (BRIE): 09-23-2025 Gate Keeper Required: No Accompanied by: Self / Same As Patient Allergies No Known Allergies (No Known Allergies*) Allergy (Verified 10/04/25 11:34) HPI HPI S/P excision perianal cyst: Details: 54 year old male who presents today for wound check and suture removal. He underwent excision of right gluteal perianal cyst on 09/23/[address] Mccormack in the OR. He tolerated the procedure well. He reports taking only motrin and smoking marijuana for pain control. He did not take any oxycodone. He has been leaving the excision site open to air. He denies drainage from the wound, fevers, chills. He is eating ok and moving his bowels normally. He takes a hot shower after BMs to cleanse the site. He has no concerns. [facility] Medical History (Updated 09/23/25 @ 09:47 by Rafael Mccormack MD) Lumbar spine tumor Right clavicle fracture Brain bleed (~2021) Seasonal affective disorder Dysplastic nevus of skin Social phobia Back pain Cigarette smoker Chest pain Acute radial nerve palsy Asthma Alcoholism Anxiety GERD (gastroesophageal reflux disease) Thoracic aortic aneurysm (TAA) ETOH abuse Perirectal abscess Surgical History (Updated 10/04/25 @ 08:22 by JEANINE Mathis) Hx of surgical procedure (09/23/25) Hx of colonoscopy History of incision and drainage Social History Household Members: Spouse Housing: House Are you a primary ambulatory care nurse to a significant other at home: No Do you presently have visiting nurse or other home services: No Patient Tobacco Use Status: Current everyday Tobacco user Tobacco use type: Cigarette Cigarette Packs Per Day: 1 Cigarettes Per Day: 20.0 Years Smoked: 40 Second Hand Smoke Exposure: No Advance Directives Date on File: 08/16/25 service: No Review of Systems Const All systems reviewed & are unremarkable except as noted in HPI and below Physical Exam Vital Signs: Last Vital Signs Pulse 107 H 10/04/25 11:31 BP 152/92 H 10/04/25 11:31 Const General: comfortable, no acute distress, alert and anxious Orientation/consciousness: patient oriented x3 Resp Effort & Inspection: normal respiratory effort and able to speak in complete sentences GI Other: perirectal- [address], excision site wound edges well approximated and healed, very mild underlying induration and erythema localized to suture sites, nontender, no drainage noted Skin Other: warm and dry Neuro General: patient oriented x3 Results Reviewed Results Reviewed: Perianal skin, cyst, excision: Ruptured epidermal inclusion cyst Assessment & Plan Assessment & Plan (1) Perianal cyst: Code(s): K62.89 - Other specified diseases of anus and rectum Category: Medical Plan 54 year old male s/p excision of right gluteal perianal cyst on 09/23/25. Excision site is well approximated and healing well, sutures removed uneventfully. There is very mild induration underlying but no evidence of infection. Continue sitz baths/hot showers to the area following bowel movements to cleanse. He can follow up as needed if he develops concerns. Coding Level of Care Code Global (85923) Diagnoses Perianal cyst K62.89
--- OUTSIDE RECORDS SUMMARY | 2025-10-04 13:44 | XMS_ITS | Clinical Summary ---
Author Organization [address] [facility] Address [address] [place] [address] Phone Care Team Providers Care Adjusto Writer Operator Name Role Phone Unavailable Primary Care Provider Unavailabl e Allergies No known active allergies Medications albuterol HFA (PROAIR HFA ; PROVENTIL HFA ; VENTOLIN HFA) 90 mcg/actuation inhaler Inhale 2 puffs by mouth every 6 (six) hours if needed for wheezing. Active Encounters Date Type Department Care Team Description 08/09/2025 11:15 AM EDT Consult General Surgery - [place] [address] [facility] [address] [place] [address] Blaise Ibarra MD Dysplastic nevus [...] age to complete this topic Insurance [facility]
== END 2025-10-04 11:42 | disposition home or self-care (01) ==
LOC: HO.HGS 11:24
PROVIDERS: PCP Physician Assistant; Visit Provider Physician Assistant Surgical
DX: K62.89 Other specified diseases of anus and rectum (principal)
CPT/HCPCS: 99024